=== PATIENT | female | born 1980 | race African-American/Black ===

== ENCOUNTER 2018-03-30 09:42 | Emergency (ER) | payer OTHER ==
[~2018-03-30] VITALS: Ht 157.5 cm; Wt 136.1 kg
[2018-03-30 10:47] VITALS: BP 138/91
[2018-03-30] MEDS ORDERED: NAPR-683 PO (10:50)
--- NOTE | 2018-03-30 10:50 | PHYS DOC ---
Past History Past Medical History: CVA, Hypertension Past Surgical History: Cholecystectomy, Alcohol Use: None Drug Use: None Adult General Chief Complaint Chief Complaint: HAND PROBLEM HPI HPI Patient is a 37 year old left handed female who presents with complaining of a fall and injury to left middle finger. Patient states he did not have loss of consciousness or other injuries and complaining of deformity and severe pain in left fifth finger and rated her pain 10 over 10. Review of Systems Review of Systems Constitutional: Denies fever or chills [] Eyes: Denies change in visual acuity, redness, or eye pain [] HENT: Denies nasal congestion or sore throat [] Respiratory: Denies cough or shortness of breath [] Cardiovascular: No additional information not addressed in HPI [] GI: Denies abdominal pain, nausea, vomiting, bloody stools or diarrhea [] : Denies dysuria or hematuria [] Musculoskeletal: Denies back pain, reports joint pain [] Integument: Denies rash or skin lesions [] Neurologic: Denies headache, focal weakness or sensory changes [] Endocrine: Denies polyuria or polydipsia [] All other systems were reviewed and found to be within normal limits, except as documented in this note. Allergies Allergies Allergies Coded Allergies Type Severity Reaction Last Updated Verified No Known Drug Allergies 03/30/18 No Physical Exam Physical Exam Constitutional: Well developed, well nourished, moderate distress, non-toxic appearance. [] HENT: Normocephalic, atraumatic Eyes: PERRLA, EOMI, conjunctiva normal, no discharge. [] Neck: Normal range of motion, no tenderness, supple, no stridor. [] Cardiovascular:Heart rate regular rhythm, no murmur [] Lungs & Thorax: Bilateral breath sounds clear to auscultation [] Back: No tenderness, no CVA tenderness. [] Extremities: Right hand with fifth finger tenderness and holding on flexion position and unable to bend her finger Neurologic: Alert and oriented X 3, normal motor function, normal sensory function, no focal deficits noted. [] Psychologic: Affect anxious, judgement normal, mood normal. [] Current Patient Data Vital Signs Vital Signs Date Time Temp Pulse Resp B/P (MAP) Pulse Ox O2 Delivery O2 Flow Rate FiO2 03/30/18 09:42 98.4 83 20 100 Room Air EKG EKG [] Radiology/Procedures Radiology/Procedures [address] [id number] IMAGING REPORT Signed PATIENT: FABIANA HYDE I ACCOUNT: [id number] : 1980 LOCATION: ER AGE: 37 SEX: F EXAM STATUS: REG ER ORD. PHYSICIAN: ROXANNE BARRIENTOS MD REASON: 5th finger injury PROCEDURE: FINGER(S) RIGHT EXAM: Right small finger, 3 views. HISTORY: Fall. COMPARISON: None. FINDINGS: 3 views of the right small finger are obtained. There is hyperflexion of the distal interphalangeal joint. There is no fracture, dislocation or subluxation. There is soft tissue swelling and may be a tiny amount of soft tissue gas between the bases of the fourth and fifth phalanges. IMPRESSION: No acute osseous finding. Electronically signed by: Ila Miguel MD (03/30/2018 10:44 AM) [place] [id number] DICTATED AND SIGNED BY: ILA MIGUEL MD DATE: 03/30/18 104 CC: ROXANNE BARRIENTOS MD; GLENNA AUGUST ~ Course & Med Decision Making Course & Med Decision Making Pertinent Imaging studies reviewed. (See chart for details) Evaluation of patient in ER showed 37-year-old female patient with complaining of a fall and injury to right fifth finger. Patient had moderate distress and anxiety and severe pain in her fifth finger. Patient condition improved with finger digital block with 1% lidocaine. X-ray did not show fracture. Patient was able to move her finger after improvement of the pain. Finger splint was applied and patient instructed to apply ice on her finger. Dragon Disclaimer Dragon Disclaimer This electronic medical record was generated, in whole or in part, using a voice recognition dictation system. Departure Departure: Impression: Primary Impression: Injury of right little finger Additional Impressions: Anxiety Morbid obesity with BMI of 50.0-59.9, adult Disposition: HOME, SELF-CARE (@1045) Condition: IMPROVED Referrals: GLENNA AUGUST (PCP) Patient Instructions: Crush Injury, Fingers or Toes Additional Instructions: Apply ice on the affected area Follow-up with your primary care physician in 3-5 days Return to ER if not getting better Scripts Naproxen (NAPROSYN) 500 Mg Tablet 500 MG PO BID for pain, #14 TAB Prov: ROXANNE BARRIENTOS MD 03/30/18 Problem Qualifiers ROXANNE BARRIENTOS MD Mar 30, 2018 10:50
== END 2018-03-30 10:55 | disposition home or self-care (01) ==
LOC: ER 09:42
DX: S69.92XA Unspecified injury of left wrist, hand and finger(s), initial encounter (principal); I10 Essential (primary) hypertension; F41.9 Anxiety disorder, unspecified; E66.01 Morbid (severe) obesity due to excess calories; Z86.73 Personal history of transient ischemic attack (TIA), and cerebral infarction without residual deficits; Z68.43 Body mass index [BMI] 50.0-59.9, adult; W18.30XA Fall on same level, unspecified, initial encounter; Y93.89 Activity, other specified; Y92.89 Other specified places as the place of occurrence of the external cause; Y99.8 Other external cause status
CPT/HCPCS: 29130; 64450; 73140; 99284-25

== ENCOUNTER 2018-07-05 10:25 | Emergency (ER) | payer OTHER ==
[~2018-07-05] VITALS: Ht 157.5 cm; Wt 150.0 kg
[~2018-07-05 10:25] MED LIST: NAPR-683 PO
[2018-07-05] MEDS ORDERED: AMOX1TAB61 PO (11:20)
--- NOTE | 2018-07-05 11:21 | PHYS DOC ---
Past History Past Medical History: CVA, Hypertension Past Surgical History: Cholecystectomy, Alcohol Use: None Drug Use: None Adult General Chief Complaint Chief Complaint: COUGH [facility] HPI 38-year-old female presents with 2 week history of nasal congestion, nasal pressure, and cough. The patient tells me that it started out as a normal cold, but she continues to have congestion and purulent nasal discharge. She now has pressure over her maxillary and frontal sinuses. These are tender to palpation. The patient has not measured a fever at home. She complains of cough with productive greenish sputum. The patient is a cigarette smoker. No one else in her house is ill. Review of Systems Review of Systems Constitutional: Denies fever or chills [] Eyes: Denies change in visual acuity, redness, or eye pain [] HENT: Nasal congestion and sore throat [] Respiratory: Productive cough without shortness of breath [] Cardiovascular: No additional information not addressed in HPI [] GI: Denies abdominal pain, nausea, vomiting, bloody stools or diarrhea [] : Denies dysuria or hematuria [] Musculoskeletal: Denies back pain or joint pain [] Integument: Denies rash or skin lesions [] Neurologic: Denies headache, focal weakness or sensory changes [] Endocrine: Denies polyuria or polydipsia [] All other systems were reviewed and found to be within normal limits, except as documented in this note. Allergies Allergies Allergies Coded Allergies Type Severity Reaction Last Updated Verified No Known Drug Allergies 03/30/18 No Physical Exam Physical Exam Constitutional: Well developed, morbid obesity, well nourished, no acute distress, non-toxic appearance. [] HENT: Normocephalic, atraumatic, bilateral external ears normal, oropharynx moist, no oral exudates, nose thick discharge. Tenderness over frontal and maxillary sinuses[] Eyes: PERRLA, EOMI, conjunctiva normal, no discharge. [] Neck: Normal range of motion, no tenderness, supple, no stridor. [] Cardiovascular:Heart rate regular rhythm, no murmur [] Lungs & Thorax: Bilateral breath sounds decreased but clear to auscultation [] Abdomen: Bowel sounds normal, soft, no tenderness, no masses, no pulsatile masses. [] Skin: Warm, dry, no erythema, no rash. [] Back: No tenderness, no CVA tenderness. [] Extremities: No tenderness, no cyanosis, no clubbing, ROM intact, no edema. [] Neurologic: Alert and oriented X 3, normal motor function, normal sensory function, no focal deficits noted. [] Psychologic: Affect normal, judgement normal, mood normal. [] Current Patient Data Vital Signs Vital Signs Date Time Temp Pulse Resp B/P (MAP) Pulse Ox O2 Delivery O2 Flow Rate FiO2 07/05/18 10:42 98.7 84 18 98 Room Air EKG EKG [] Radiology/Procedures Radiology/Procedures [] Impressions: PA and lateral chest HISTORY: Cough x2 weeks PA and lateral views were taken of the chest. Heart is normal in size without heart failure. There is no effusion. There are no confluent infiltrates. IMPRESSION: 1. No acute infiltrates. Electronically signed by: Dionne Troncoso MD (07/05/2018 11:15 AM) [facility] DICTATED AND SIGNED BY: DIONNE TRONCOSO MD DATE: 07/05/18 1115 CC: ANGEL LACY DO; GLENNA AUGUST Course & Med Decision Making Course & Med Decision Making Pertinent Labs and Imaging studies reviewed. (See chart for details) The patient's chest x-ray is negative for pneumonia. I believe the patient has a sinus infection. I will treat her with Augmentin for 7 days. She is stable for discharge at this time. [] Dragon Disclaimer Dragon Disclaimer This electronic medical record was generated, in whole or in part, using a voice recognition dictation system. Departure Departure: Impression: Primary Impression: Sinusitis, acute maxillary Disposition: 01 HOME, SELF-CARE Condition: STABLE Referrals: GLENNA AUGUST (PCP) Patient Instructions: Sinusitis, Uisp-za-Ebzs Scripts Amoxicillin/Potassium Clav (AUGMENTIN 875-125 TABLET) 1 Each Tablet 1 TAB PO BID for sinusitis, #14 TAB Prov: ANGEL LACY DO 07/05/18 Problem Qualifiers Primary Impression: Sinusitis, acute maxillary Recurrence: non-recurrent Qualified Codes: J01.00 - Acute maxillary sinusitis, unspecified ANGEL LACY DO Jul 05, 2018 11:21
[2018-07-05 11:47] VITALS: BP 145/87
== END 2018-07-05 11:45 | disposition home or self-care (01) ==
LOC: ER 10:25
DX: J01.00 Acute maxillary sinusitis, unspecified (principal); I10 Essential (primary) hypertension; Z86.73 Personal history of transient ischemic attack (TIA), and cerebral infarction without residual deficits
CPT/HCPCS: 71046; 99284

== ENCOUNTER 2018-07-15 12:32 | Emergency (ER) | payer OTHER ==
[~2018-07-15] VITALS: Ht 157.5 cm; Wt 149.6 kg
[~2018-07-15 12:32] MED LIST changes: +AMOX1TAB61 PO
[2018-07-15] MEDS ORDERED: FLUCONAZOLE 100 MG TABLET. PO ONE ×2 (13:00)
[2018-07-15] MEDS ORDERED: CLOT21CR VG (13:06)
[2018-07-15] MEDS ORDERED: FLUC150T PO (13:06)
--- NOTE | 2018-07-15 13:06 | PHYS DOC ---
Past History Past Medical History: CVA, Diabetes, Hypertension Past Surgical History: Cholecystectomy, Alcohol Use: None Drug Use: None Adult General Chief Complaint Chief Complaint: VAGINAL PROBLEM HPI HPI Patient is a 38-year-old female who presents with vaginal discharge and itching. This is similar to previous yeast infection that she last had in her late teens. She recently finished antibiotic prescription. Nothing seems to make this better or worse. She denies any vaginal bleeding. Symptoms are moderate in intensity. She has not tried any [id number] treatment.[] Review of Systems Review of Systems Constitutional: Denies fever or chills [] Eyes: Denies change in visual acuity, redness, or eye pain [] HENT: Denies nasal congestion or sore throat [] Respiratory: Denies cough or shortness of breath [] Cardiovascular: No chest pain or palpitations[] GI: Denies abdominal pain, nausea, vomiting, bloody stools or diarrhea [] : Denies dysuria or hematuria [] Musculoskeletal: Denies back pain or joint pain [] Integument: Denies rash or skin lesions [] Neurologic: Denies headache, focal weakness or sensory changes [] Endocrine: Denies polyuria or polydipsia [] All other systems were reviewed and found to be within normal limits, except as documented in this note. Current Medications Current Medications Current Medications Medications (Trade) Dose Ordered Sig/Tal Start Time Stop Time Status Last Admin Dose Admin Fluconazole (Diflucan) 150 mg 1X ONCE 07/15/18 13:00 07/15/18 13:01 UNV Allergies Allergies Allergies Coded Allergies Type Severity Reaction Last Updated Verified No Known Drug Allergies 03/30/18 No Physical Exam Physical Exam Constitutional: Well developed, well nourished, no acute distress, non-toxic appearance. [] HENT: Normocephalic, atraumatic, bilateral external ears normal, oropharynx moist, no oral exudates, nose normal. [] Eyes: PERRLA, EOMI, conjunctiva normal, no discharge. [] Neck: Normal range of motion, no tenderness, supple, no stridor. [] Cardiovascular:Heart rate regular rhythm, no murmur [] Lungs & Thorax: Bilateral breath sounds clear to auscultation [] Abdomen: Bowel sounds normal, soft, no tenderness, no masses, no pulsatile masses. Pelvic exam deferred by patient [] Skin: Warm, dry, no erythema, no rash. [] Back: No tenderness, no CVA tenderness. [] Extremities: No tenderness, no cyanosis, no clubbing, ROM intact, no edema. [] Neurologic: Alert and oriented X 3, normal motor function, normal sensory function, no focal deficits noted. [] Psychologic: Affect normal, judgement normal, mood normal. [] Current Patient Data Vital Signs Vital Signs Date Time Temp Pulse Resp B/P (MAP) Pulse Ox O2 Delivery O2 Flow Rate FiO2 07/15/18 12:40 98.9 82 18 98 Room Air EKG EKG [] Radiology/Procedures Radiology/Procedures [] Course & Med Decision Making Course & Med Decision Making Pertinent Labs and Imaging studies reviewed. (See chart for details) Medical decision making: This appears on history to be a case of vaginal candidiasis. Will start treatment with Diflucan while in the emergency department. Prescribing medication help with the itching and a second dose of Diflucan if necessary.[] Dragon Disclaimer Dragon Disclaimer This electronic medical record was generated, in whole or in part, using a voice recognition dictation system. Departure Departure: Impression: Primary Impression: Vaginal candidiasis Disposition: HOME, SELF-CARE Condition: IMPROVED Referrals: GLENNA AUGUST (PCP) Follow-up in 2 days Patient Instructions: Candidal Vulvovaginitis, Heyr-ub-Lbzw Additional Instructions: Follow-up with your regular doctor in 2 days. Take the medication as prescribed. Return to the ER if worsening pain, discharge, or any other concerns. Scripts Fluconazole (DIFLUCAN) 150 Mg Tablet 1 TAB PO ONCE for candidiasis, #1 TAB Prov: AMILCAR PASTOR DO 07/15/18 Clotrimazole (GYNE-LOTRIMIN) 21 Gm Cream.appl 1 TAVO VG HS for candidiasis for 7 Days, #1 EACH Prov: AMILCAR PASTOR DO 07/15/18 AMILCAR PASTOR DO Jul 15, 2018 13:06
[2018-07-15 13:11] VITALS: BP 138/89
== END 2018-07-15 13:11 | disposition home or self-care (01) ==
LOC: ER 12:32
DX: B37.3 Candidiasis of vulva and vagina (principal); E11.9 Type 2 diabetes mellitus without complications; I10 Essential (primary) hypertension; Z86.73 Personal history of transient ischemic attack (TIA), and cerebral infarction without residual deficits; Z90.49 Acquired absence of other specified parts of digestive tract; Z98.890 Other specified postprocedural states
CPT/HCPCS: 99283

== ENCOUNTER 2018-08-14 17:19 | Emergency (ER) | payer OTHER ==
[~2018-08-14] VITALS: Ht 157.5 cm; Wt 145.6 kg
[~2018-08-14 17:19] MED LIST changes: +CLOT21CR VG; +FLUC150T PO
--- NOTE | 2018-08-14 17:51 | PHYS DOC ---
Past History Past Medical History: CVA, Diabetes, Gallstones, Hypertension, Kidney Stones (AMILCAR PASTOR DO) Past Surgical History: No Surgical History (AMILCAR PASTOR DO) Additional Smoking Information: 03/27 PPD Alcohol Use: None Drug Use: None (AMILCAR PASTOR DO) Adult General Chief Complaint Chief Complaint: MULTIPLE COMPLAINTS HPI HPI Patient is a 38-year-old female with 2 complaints. 1. Chest heaviness that has been present for the past 2-3 days. Feels like she can't get a good deep breath. Notes bilateral leg swelling. No PE risk factors. No cough. No change with body position. No significant worsening with exertion. No radiation of the discomfort. It is midsternal. Discomfort is moderate in intensity. 2. Headache for the past 2 days. Not worst headache of life, but she is concerned because she's had previous stroke with right sided weakness. She denies any new weakness. Denies any photo or phonophobia. Denies any nausea or vomiting. Denies any fever. She has taken no medicine to help with the headache. Nothing seems to make the discomfort better or worse. No improvement with sleep. Discomfort is moderate in intensity. Diffuse. No radiation.[] (AMILCAR PASTOR DO) Review of Systems Review of Systems Constitutional: Denies fever or chills [] Eyes: Denies change in visual acuity, redness, or eye pain [] HENT: Denies nasal congestion or sore throat [] Respiratory: Denies cough or shortness of breath [] Cardiovascular: No additional information not addressed in HPI [] GI: Denies abdominal pain, nausea, vomiting, bloody stools or diarrhea [] : Denies dysuria or hematuria [] Musculoskeletal: Denies back pain or joint pain [] Integument: Denies rash or skin lesions [] Neurologic: Denies new focal weakness or sensory changes, see HPI [] Endocrine: Denies polyuria or polydipsia [] All other systems were reviewed and found to be within normal limits, except as documented in this note. (AMILCAR PASTOR DO) Allergies Allergies Allergies Coded Allergies Type Severity Reaction Last Updated Verified No Known Drug Allergies 03/30/18 No (AMILCAR PASTOR DO) Physical Exam Physical Exam Constitutional: Well developed, well nourished, no acute distress, non-toxic appearance. [] HENT: Normocephalic, atraumatic, bilateral external ears normal, oropharynx moist, no oral exudates, nose normal. [] Eyes: PERRLA, EOMI, conjunctiva normal, no discharge. [] Neck: Normal range of motion, no tenderness, supple, no stridor. [] Cardiovascular:Heart rate regular rhythm, no murmur [] Lungs & Thorax: Bilateral breath sounds clear to auscultation [] Abdomen: Bowel sounds normal, soft, obese, no tenderness, no masses, no pul satile masses. [] Skin: Warm, dry, no erythema, no rash. [] Back: No tenderness, no CVA tenderness. [] Extremities: No tenderness, no cyanosis, no clubbing, ROM intact, 1-2+ pretibial edema bilateral lower extremities. [] Neurologic: Alert and oriented X 3, right upper extremity weakness, normal rapid repetitive and alternating movements bilaterally, NIH stroke scale of 1 for the upper extremity weakness, normal sensory function, no focal deficits noted. [] Psychologic: Affect normal, judgement normal, mood normal. [] ([facility]) Current Patient Data Vital Signs Vital Signs Date Time Temp Pulse Resp B/P (MAP) Pulse Ox O2 Delivery O2 Flow Rate FiO2 08/14/18 17:37 99.5 101 26 98 Room Air ([facility]) EKG EKG EKG shows a sinus rhythm at 90 bpm, normal axis, normal QTC, no ST elevations. No old EKG is available for comparison. Interpreted by me at 1730.[] ([facility]) Radiology/Procedures Radiology/Procedures [] ([facility]) Impressions: CHEST PA LATERAL History: Chest pressure, headache, lower extremity swelling Comparison: July 05, 2018 Findings: 2 views of the chest are submitted. Cardiac silhouette is stable, upper limits of normal. There is no lobar consolidation or pneumothorax. There is no new lobar consolidation. There are some lung markings of the right lung base although very similar in appearance. Impression: 1. There is no pleural fluid or new lobar consolidation. Electronically signed by: Carmelo Harding MD (08/14/2018 6:00 PM) [facility] DICTATED AND SIGNED BY: CARMELO HARDING MD DATE: 08/14/18 1800 CC: AMILCAR PASTOR DO; PCP,NO ~ CT HEAD WO CONTRAST History: Headache, right upper extremity weakness, previous CVA Comparison: None. Technique: Noncontrast CT imaging was performed of the head. Exposure: One or more of the following individualized dose reduction techniques were utilized for this examination: 1. Automated exposure control 2. Adjustment of the mA and/or kV according to patient size 3. Use of iterative reconstruction technique. Findings: No acute extra-axial or parenchymal hemorrhage is identified. There is no significant intra-axial mass effect, midline shift, or extra-axial fluid collection. The calderon-white differentiation of the major vascular territories is preserved. The ventricles, sulci, and cisterns are within normal limits in size and configuration. The mastoid air cells and the visualized paranasal sinuses are aerated. No acute calvarial abnormality is identified. Impression: 1. No acute intracranial abnormality is identified. Electronically signed by: Carmelo Harding MD (08/14/2018 6:03 PM) [facility] DICTATED AND SIGNED BY: CARMELO HARDING MD DATE: 08/14/18 1803 CC: AMILCAR PASTOR DO; PCP,NO ~ (ANGEL LACY DO) Course & Med Decision Making Course & Med Decision Making Pertinent Labs and Imaging studies reviewed. (See chart for details) D course: Patient arrived, was placed in bed, and tolerated exam well. Patient care was endorsed to the nighttime physician at 1800 with Harry imaging studies pending.[] (AMILCAR PASTOR DO) Course & Med Decision Making The patient's labs are unremarkable. Her chest x-ray is unremarkable. Her head CT is unremarkable. Her troponin is negative. Her EKG is unremarkable. No acute cardiopulmonary process is seen. I will treat her headache with 25 mg of Benadryl, 10 mg of Reglan, and 30 mg Toradol. I spoke with the patient again and she is most concerned about her lower extremity swelling. She is on Losar mcclellan/hydrochlorothiazide for BP. I believe it is reasonable to do a short course of Lasix for 3 days to see if this improves her swelling and symptoms. Patient is feeling better at this time I would like to go home. I have discharged her with a prescription for a total of 5 20 mg Lasix pills. (ANGEL LACY DO) Dragon Disclaimer Dragon Disclaimer This electronic medical record was generated, in whole or in part, using a voice recognition dictation system. (AMILCAR PASTOR DO) Departure Departure: Impression: Primary Impression: Chest pain Additional Impressions: Headache Edema, lower extremity Disposition: HOME, SELF-CARE Condition: STABLE Referrals: PCP,NO (PCP) Patient Instructions: Chest Pain (Nonspecific), Pmch-pm-Asmm, Peripheral Edema Scripts Furosemide (LASIX) 20 Mg Tablet 1 TAB PO DAILY PRN for lower extremity swelling for 5 Days, #5 TAB 1 Refill Prov: ANGEL LACY DO 08/14/18 Problem Qualifiers Primary Impression: Chest pain Chest pain type: other chest pain Qualified Codes: R07.89 - Other chest pain Additional Impressions: Headache Headache type: unspecified Headache chronicity pattern: acute headache Intractability: not intractable Qualified Codes: R51 - Headache AMILCAR PASTOR DO August 14, 2018 17:51 ANGEL LACY DO August 14, 2018 18:43
--- NOTE | 2018-08-14 18:03 | RAD ---
CHEST PA LATERAL History: Chest pressure, headache, lower extremity swelling Comparison: July 05, 2018 Findings: 2 views of the chest are submitted. Cardiac silhouette is stable, upper limits of normal. There is no lobar consolidation or pneumothorax. There is no new lobar consolidation. There are some lung markings of the right lung base although very similar in appearance. Impression: 1. There is no pleural fluid or new lobar consolidation. Electronically signed by: Seth Kearns MD (08/14/2018 6:00 PM) [facility]
--- NOTE | 2018-08-14 18:06 | RAD ---
CT HEAD WO CONTRAST History: Headache, right upper extremity weakness, previous CVA Comparison: None. Technique: Noncontrast CT imaging was performed of the head. Exposure: One or more of the following individualized dose reduction techniques were utilized for this examination: 1. Automated exposure control 2. Adjustment of the mA and/or kV according to patient size 3. Use of iterative reconstruction technique. Findings: No acute extra-axial or parenchymal hemorrhage is identified. There is no significant intra-axial mass effect, midline shift, or extra-axial fluid collection. The calderon-white differentiation of the major vascular territories is preserved. The ventricles, sulci, and cisterns are within normal limits in size and configuration. The mastoid air cells and the visualized paranasal sinuses are aerated. No acute calvarial abnormality is identified. Impression: 1. No acute intracranial abnormality is identified. Electronically signed by: Seth Kearns MD (08/14/2018 6:03 PM) [facility]
[2018-08-14 18:18] LABS: BASO % 0 % (0-3); EOS # 0.1 x10^3/uL (0.0-0.7); EOS % 1 % (0-3); HEMATOCRIT 37.4 % (36.0-47.0); HEMOGLOBIN 11.5 g/dL (12.0-15.5); LYMPH # 2.7 x10^3/uL (1.0-4.8); LYMPH % 24 % (24-48); MEAN CORPUSCULAR HEMOGLOBIN 22 pg (25-35); MEAN CORPUSCULAR HGB CONC 31 g/dL (31-37); MEAN CORPUSCULAR VOLUME 72 fL (79-100); MONO # 0.8 x10^3/uL (0.0-1.1); MONO % 7 % (0-9); NEUT # 7.6 x10^3uL (1.8-7.7); NEUT % 67 % (31-73); PLATELET COUNT 345 x10^3/uL (140-400); RED BLOOD COUNT 5.16 x10^6/uL (3.50-5.40); RED CELL DISTRIBUTION WIDTH 18.9 % (11.5-14.5); WHITE BLOOD COUNT 11.3 x10^3/uL (4.0-11.0)
[2018-08-14 18:21] LABS: ALBUMIN 2.9 g/dL (3.4-5.0); ALBUMIN/GLOBULIN RATIO 0.6 (1.0-1.7); CALCIUM 9.2 mg/dL (8.5-10.1); CREATININE 0.8 mg/dL (0.6-1.0); GFR 96.6; MAGNESIUM 1.8 mg/dL (1.8-2.4); POTASSIUM 3.4 mmol/L (3.5-5.1); TOTAL BILIRUBIN 0.1 mg/dL (0.2-1.0); TOTAL PROTEIN 7.4 g/dL (6.4-8.2)
[2018-08-14 19:03] LABS: HYPOCHROMIA MOD; PLT ESTIMATE ADEQUATE (ADEQUATE)
[2018-08-14 19:04] LABS: ANISOCYTOSIS SLIGHT; POLYCHROMASIA SLIGHT
[2018-08-14] MEDS ORDERED: diphenhydrAMINE 50 MG/ML VIAL IVP ONE (19:15)
[2018-08-14] MEDS ORDERED: KETOROLAC 30 MG/ML VIAL. IV ONE (19:15)
[2018-08-14] MEDS ORDERED: METOCLOPRAMIDE HCL 10 MG/2 ML VIAL. IV ONE (19:15)
[2018-08-14 19:24] LABS: BACTERIA,URINE 0 /HPF (0-FEW); BILIRUBIN,URINE NEG (NEG); CLARITY,URINE HAZY; COLOR,URINE AMBER; GLUCOSE,URINE NEG (NEG); NITRITE,URINE NEG (NEG); RBC,URINE 0 /HPF (0-2); SQUAMOUS EPITHELIAL CELL,UR OCC /LPF; U PREG PATIENT NEGATIVE (NEG); UROBILINOGEN,URINE 0.2 mg/dL (0.2 mg/dL); WBC,URINE 0 /HPF (0-4)
[2018-08-14] MEDS ORDERED: FURO-69 PO (19:28)
[2018-08-14] MEDS ORDERED: FUROSEMIDE 40 MG TABLET PO ONE (19:30)
[2018-08-14 19:34] VITALS: BP 143/88
--- NOTE | 2018-08-17 06:25 | EKG ---
[address] [address] Test Date: 2018-08-14 Test Time: 17:30:36 Pat Name: FABIANA HYDE Department: Room: Gender: F Medical Claims Analyst: : 1980 Requested By: AMILCAR PASTOR Order Number: [id number] Reading MD: Measurements Intervals [place] Rate: 90 P: 34 MT: 150 QRS: 21 QRSD: 88 T: 20 QT: 346 QTc: 427 Interpretive Statements SINUS RHYTHM NORMAL ECG RI6.01 No previous ECG available for comparison
== END 2018-08-14 19:50 | disposition home or self-care (01) ==
LOC: ER 17:19
DX: R07.89 Other chest pain (principal); R60.0 Localized edema; R51 Headache; F17.200 Nicotine dependence, unspecified, uncomplicated; Z87.442 Personal history of urinary calculi; Z86.73 Personal history of transient ischemic attack (TIA), and cerebral infarction without residual deficits
CPT/HCPCS: 36415; 70450; 71046; 80053; 81001; 81025; 83735; 83880; 84484; 85025; 85379; 85610; 85730; 93005; 96374; 96375; 99285; J1200; J1885; J2765

== ENCOUNTER → 2019-03-10 | Outpatient (CLI) | payer MEDICAID ==
[~2019-03-10] MED LIST changes: +FURO-69 PO
--- NOTE | 2019-03-10 16:02 | RAD ---
EXAM: Abdomen and pelvis CT without intravenous contrast. HISTORY: Left flank pain. TECHNIQUE: Computed tomographic images of the abdomen and pelvis were obtained without contrast. Multiplanar reformatting was performed. *One or more of the following individualized dose reduction techniques were utilized for this examination: 1. Automated exposure control. 2. Adjustment of the mA and/or kV according to patient size. 3. Use of iterative reconstruction technique. COMPARISON: None. FINDINGS: Evaluation of the lower thorax demonstrates a calcified granuloma within the posterior right lower lobe. There is a small hiatal hernia. There is hepatomegaly and hepatic steatosis. The gallbladder is surgically absent. The pancreas is unremarkable. The spleen is normal in size for body habitus. The adrenal glands are unremarkable. There is a 6 mL nonobstructing stone within the lower pole of the left kidney. There is no convincing left hydronephrosis. There are multiple calcifications along the course of the distal ureters which are likely due to phleboliths. No right renal stone is seen. There is right renal cortical lobulation due to scarring. There may be a small cyst within the anterior mid zone of the right kidney. The bladder is unremarkable. The uterus is prominent in size. No uterine mass is seen. The adnexal regions are unremarkable. There is no appendicitis. There is colonic diverticulosis without diverticulitis. There are multiple retroperitoneal lymph nodes. There is no pathologically enlarged lymph node. There is no suspicious osseous lesion. IMPRESSION: 1. Left nephrolithiasis. No obstructing renal stone is seen. There are several calcifications along the course of the distal ureters which likely pelvic phleboliths given the absence of ureteral dilatation to suggest ureterolithiasis. 2. Right renal cortical scarring. There may be a small right renal cyst. 3. Hepatomegaly. 4. Colonic diverticulosis. Electronically signed by: Ila Reyes MD (03/10/2019 3:59 PM) [place] [id number]
== END | disposition home or self-care (01) ==
LOC: CT 11:55
PROVIDERS: ATTEND Family Medicine
DX: K57.30 Diverticulosis of large intestine without perforation or abscess without bleeding (principal); K44.9 Diaphragmatic hernia without obstruction or gangrene; J84.10 Pulmonary fibrosis, unspecified; K76.0 Fatty (change of) liver, not elsewhere classified; R16.0 Hepatomegaly, not elsewhere classified; N20.0 Calculus of kidney
CPT/HCPCS: 74176

== ENCOUNTER 2019-08-03 09:10 | Emergency (ER) | payer MEDICAID ==
[~2019-08-03] VITALS: Ht 157.5 cm; Wt 162.8 kg
[~2019-08-03 09:10] MED LIST changes: -HYDR-3165 PO; -SULF1TAB23 PO
--- NOTE | 2019-08-03 09:21 | PHYS DOC ---
Past History Past Medical History: CVA, Diabetes, Gallstones, Hypertension, Kidney Stones Past Surgical History: No Surgical History Alcohol Use: None Drug Use: None General Adult HPI: HPI: Patient is a 39-year-old female presents to the emergency department for evaluation of a painful blister in her perineal area which developed over the past 3 days. She has not had any nausea, vomiting, Dysuria, fevers, or chills. She is a diabetic, and states that her last blood sugar was in the 130s last night. Palpation of the affected area worsens her pain. There are no alleviating factors to her symptoms. Review of Systems: Review of Systems: Constitutional: Denies fever or chills GI: Denies abdominal pain, nausea, vomiting, bloody stools or diarrhea : Denies dysuria, denies Musculoskeletal: Denies back pain or joint pain Integument: Denies rash Neurologic: Denies headache, focal weakness or sensory changes Endocrine: Denies polyuria or polydipsia Lymphatic: Denies swollen glands Heart Score: Risk Factors: Risk Factors: DM, Current or recent (<one month) smoker, HTN, HLP, family history of CAD, obesity. Risk Scores: Score 0 - 3: 2.5% MACE over next 6 weeks - Discharge Home Score 4 - 6: 20.3% MACE over next 6 weeks - Admit for Clinical Observation Score 7 - 10: 72.7% MACE over next 6 weeks - Early Invasive Strategies Allergies: Allergies: Allergies Coded Allergies Type Severity Reaction Last Updated Verified No Known Drug Allergies 03/30/18 No Physical Exam: PE: PHYSICAL EXAM: CONSTITUTIONAL: Well developed, well nourished HEAD: normocephalic, atraumatic EENT: PERRL, EOMI. Conjunctivae normal color, sclerae non-icteric; moist mucous membranes. NECK: Supple, non-tender; no meningismus. LUNGS: Lungs CTA, breathing even and unlabored. Normal air movement. HEART: Regular rate and rhythm, no murmur CHEST: No deformity; non-tender ABDOMEN: The abdomen is soft, and non-tender, no masses or bruits. EXTREM: Normal ROM; no deformity, no calf tenderness. Normal pulses palpable in all extremities. There is no pedal edema. SKIN: No rash; no diaphoresis NEURO: Alert; normal speech and cognition; CN's grossly intact; strength grossly intact without focal deficit. BACK: No CVA TTP. GENITOURINARY: Normal external genitalia. On the superior medial gluteal region, inferior to the vaginal area, and anterior to the anal verge, there is a small nickel sized pustular lesion consistent with a cutaneous abscess. There is a small head to the lesion, with a trace drainage of purulence present. Exam was performed in the presence of the patient's nurse, acting as statistics professor. EKG: EKG: [] Radiology/Procedures: Radiology/Procedures: [] Course & Med Decision Making: Course & Med Decision Making INCISION AND DRAINAGE PROCEDURE NOTE: The abscess located on the right perineal area was prepped with Betadine, anesth etized with 1% lidocaine with epinephrine, and 0.5% Marcaine in a 1: 1 mixture, and incised with #11 blade. A small amount of pus was obtained from the wound, the wound was probed with a blunt forceps and packed with gauze packing. The patient tolerated procedure well. Wound care instructions were discussed with the patient. Hoang Disclaimer: Dragon Disclaimer: This electronic medical record was generated, in whole or in part, using a voice recognition dictation system. Departure Departure: Impression: Primary Impression: Abscess Disposition: 01 HOME, SELF-CARE Condition: STABLE Referrals: AZIZA SMITH MD (PCP) Patient Instructions: Abscess, Incision and Drainage Additional Instructions: Applying warm compresses to the affected area may help improve healing. Change the packing once daily for the next 4 days. Then remove the packing completely. Follow-up with your primary care provider in the next 3 to 4 days for further evaluation. Scripts Hydrocodone Bit/Acetaminophen (NORCO 5-325 TABLET) 1 Each Tablet 1 TAB PO Q6H for pain, #10 TAB Prov: MARIAM RUEDA MD 08/03/19 Sulfamethoxazole/Trimethoprim (BACTRIM 400-80 MG TABLET) 1 Each Tablet 1 TAB PO BID for - for 7 Days, #14 TAB 0 Refills Prov: MARIAM RUEDA MD 08/03/19 MARIAM RUEDA MD August 03, 2019 09:21
[2019-08-03] MEDS ORDERED: LIDOCAINE 1%/EPI 1:100,000 20 ML VIAL. ONE (09:55)
[2019-08-03] MEDS ORDERED: BUPIVACAINE MPF 0.5% 30 ML VIAL. ONE (09:57)
[2019-08-03 10:53] VITALS: BP 150/82
[2019-08-03] MEDS ORDERED: HYDR-3165 PO (10:54)
[2019-08-03] MEDS ORDERED: SULF1TAB23 PO (10:54)
== END 2019-08-03 10:57 | disposition home or self-care (01) ==
LOC: ER 09:10
DX: L02.215 Cutaneous abscess of perineum (principal); E11.9 Type 2 diabetes mellitus without complications; I10 Essential (primary) hypertension; Z87.442 Personal history of urinary calculi; Z86.73 Personal history of transient ischemic attack (TIA), and cerebral infarction without residual deficits
CPT/HCPCS: 56405; 99284

== ENCOUNTER → 2019-08-03 | Outpatient (CLI) | payer MEDICAID ==
[~2019-08-03] MED LIST changes: +HYDR-3165 PO; +SULF1TAB23 PO
--- NOTE | 2019-08-03 11:41 | RAD ---
CT Abdomen and Pelvis without contrast History: Left flank pain, history of stones Technique: Noncontrast CT imaging was performed of the abdomen and pelvis. Multiplanar images are reviewed. Exposure: One or more of the following individualized dose reduction techniques were utilized for this examination: 1. Automated exposure control 2. Adjustment of the mA and/or kV according to patient size 3. Use of iterative reconstruction technique. Comparison: March 10, 2019 Findings: There is again 4 to 5 mm calculus of the mid left kidney, no hydronephrosis. No convincing ureteral calculus is identified on either side. There are several phleboliths in the bilateral pelvis. There is no right renal calculus. There is again degree of lobulation of the right kidney. Urinary bladder is distended. Accurate evaluation of abdominal visceral organs is limited without intravenous contrast. There is no obvious focal abnormality of the spleen, liver, or pancreas. There is again hepatomegaly. There again has been cholecystectomy. There is no adrenal nodularity. Accurate evaluation of bowel is limited without oral contrast. There is no significant free air, free fluid, bowel dilatation. There is scattered diverticulosis greatest of the descending and sigmoid colon not associated with convincing adjacent inflammatory change. Normal caliber appendix is visualized. Uterus is again enlarged. There are again several nonspecific inguinal nodes bilaterally, largest on the right about 1.2 cm short axis dimension somewhat larger as previously 0.8 cm. There are again possible small retroperitoneal nodes overall similar. There are also some nodes along the iliac chains, largest on the right about 0.8 cm short axis dimension fairly similar. Impression: 1. There is again nonobstructive left renal calculus about 4 to 5 mm, no hydronephrosis or ureteral calculus. 2. There is again enlargement of the uterus. 3. There is again colonic diverticulosis without convincing evidence of diverticulitis. 4. There are nonspecific inguinal lymph nodes, including somewhat larger node on the right considered somewhat enlarged. Electronically signed by: Seth Kearns MD (08/03/2019 11:38 AM) [id number]
== END | disposition home or self-care (01) ==
LOC: CT 11:05
PROVIDERS: ATTEND Urology
DX: N20.0 Calculus of kidney (principal); N85.2 Hypertrophy of uterus; K57.30 Diverticulosis of large intestine without perforation or abscess without bleeding; I87.8 Other specified disorders of veins; N32.89 Other specified disorders of bladder; Z90.49 Acquired absence of other specified parts of digestive tract
CPT/HCPCS: 74176

== ENCOUNTER → 2019-09-03 | Outpatient (CLI) | payer MEDICAID ==
[~2019-09-03] MED LIST changes: +HYDR-3165 PO; +SULF1TAB23 PO
== END | disposition home or self-care (01) ==
LOC: LAB 08:23
PROVIDERS: ATTEND Registered Nurse
DX: Z01.818 Encounter for other preprocedural examination (principal); Z11.59 Encounter for screening for other viral diseases; N20.0 Calculus of kidney
CPT/HCPCS: C9803; U0003; 87299

== ENCOUNTER 2019-11-23 09:43 | Emergency (ER) | payer MEDICAID ==
[~2019-11-23] VITALS: Ht 157.5 cm; Wt 162.8 kg
[2019-11-23 09:56] VITALS: BP 172/90
[2019-11-23] MEDS ORDERED: ACETAMINOPHEN 325 MG TABLET PO ONE (10:00)
[2019-11-23] MEDS ORDERED: IBUPROFEN 600 MG TABLET. PO ONE (10:00)
--- NOTE | 2019-11-23 10:03 | PHYS DOC ---
Past History Past Medical History: CVA, Diabetes, Gallstones, Hypertension, Kidney Stones Past Surgical History: No Surgical History Alcohol Use: None Drug Use: None Adult General Chief Complaint Chief Complaint: FOOT INJURY PAIN HPI HPI Patient is a 39-year-old female who presents for right foot injury. Onset was just prior to arrival, patient reports waking up and stepping incorrectly down x1 step. Patient reports eversion type injury to right foot. Nothing known makes better. Ambulation and direct palpation make worse. Patient has history of flat feet bilaterally, has never had surgery. Patient nonambulatory on arrival due to pain. Review of Systems Review of Systems Fourteen body systems of review of systems have been reviewed. See HPI for pertinent positives and negative responses, other salgado all other systems are negative, non-pertinent or non-contributory Allergies Allergies Allergies Coded Allergies Type Severity Reaction Last Updated Verified No Known Drug Allergies 03/30/18 No Physical Exam Physical Exam Constitutional: Well developed, well nourished, no acute distress, non-toxic appearance. HENT: Normocephalic, atraumatic, bilateral external ears normal, oropharynx moist, no oral exudates, nose normal. Eyes: PERRLA, EOMI, conjunctiva normal, no discharge. Neck: Normal range of motion, no tenderness, supple, no stridor. Cardiovascular: Heart rate regular per vitals monitor Lungs & Thorax: Bilateral chest rise, no respiratory distress Abdomen: Soft no tenderness, no masses, no pulsatile masses. Nonsurgical abdomen, no peritoneal signs Skin: Warm, dry, no erythema, no rash. Back: No tenderness, no CVA tenderness. Extremities: No cyanosis, no clubbing, no edema. Bilateral feet and ankles unless otherwise noted: Proximal Tibia and fibular heads nontender Medial malleolus nontender Lateral malleolus nontender Calcaneus nontender Tarsometatarsal region and navicular region of right press tender star signal to palpation Base of 5th nontender Rest of foot and ankle without marked tenderness Varus and Valgus Stress of ankle joint without significant laxity Decreased range of motion of right foot in all planes of motion due to pain, otherwise full strength Skin on plantar section of midfoot without ecchymosis Capillary refill <2seconds and distal Sensation to light touch in tact per routine Compartments surrounding are soft TP & DP pulses 2+ Neurologic: Alert and oriented X 3, normal motor & sensory function, no focal deficits noted. Psychologic: Affect normal, judgement normal, mood normal. EKG EKG [] Radiology/Procedures Radiology/Procedures FOOT RIGHT 3V, TIBIA FIBULA RIGHT, ANKLE RIGHT 3V DATE: 11/23/2019 9:53 AM INDICATION: right foot eversion injury, pain COMPARISON: None. FINDINGS: Bones: There is no evidence of acute fracture or dislocation. Tiny corticated ossific density in the medial clear space appears chronic. Plantar calcaneal enthesophyte. Joints: The ankle mortise is congruent. No widening of the distal tibiofibular syndesmosis. Lisfranc's joint is congruent. Hallux valgus. Miscellaneous: None. IMPRESSION: No evidence of acute fracture. Electronically signed by: Seth Gimenez MD (11/23/2019 10:29 AM) [facility] Course & Med Decision Making Course & Med Decision Making Nonambulatory patient seen on immediate ER arrival Airway patent, breathing unremarkable, vitals grossly unremarkable besides marked hypertension (asymptomatic) on arrival Comprehensive history and physical exam obtained, Bee rule positive for right foot and radiographs ordered 600 mg ibuprofen and 650 mg Tylenol administered for pain Reviewed findings of radiographs that were negative for any obvious bony abnormalities. Discussed most likely diagnosis of ankle sprain Discussed discharge home with supportive care, Tylenol and [id number] NSAIDs for pain control, and rice protocol with close PCP follow-up Patient placed in air splint and given crutches, she was educated on crutch use and demonstrated good knowledge prior to departure Discussed potential role for outpatient physical therapy and/or need for orthopedic evaluation if not fully resolved, she will need to discuss this more with PCP Strict return precautions discussed with good understanding by patient, all questions and concerns addressed prior to ER departure in stable condition Dragon Disclaimer Dragon Disclaimer This electronic medical record was generated, in whole or in part, using a voice recognition dictation system. Departure Departure: Impression: Primary Impression: Right ankle sprain Additional Impression: HTN (hypertension) Disposition: 01 HOME/RESIDENCE PRIOR TO ADM Condition: STABLE Referrals: AZIZA SMITH MD (PCP) Patient Instructions: Ankle Exercises (for Rehabilitation), Ankle Sprain, RICE - Routine Care for Injuries Additional Instructions: As recommended prior to ER departure, please call your primary physician first thing on ER departure to set up hospital follow-up in upcoming 1 to 9 days time Please see attached instructions on how to care for your ankle using rice protocol, daily exercises, and other supportive care measures to ensure continued healing Also, your blood pressure was elevated on arrival to our ER today. Please keep a log of at least 1-3 readings daily, keep this in a journal, and present this to your PCP for review at follow-up visit It was a pleasure to take care of you and I wish you a speedy recovery! Justification of Admission: Justification of Admission: Justification of Admission Dx: N/A Problem Qualifiers JANES VÁSQUEZ DO Nov 23, 2019 10:03
--- NOTE | 2019-11-23 10:33 | RAD ---
FOOT RIGHT 3V, TIBIA FIBULA RIGHT, ANKLE RIGHT 3V DATE: 11/23/2019 9:53 AM INDICATION: right foot eversion injury, pain COMPARISON: None. FINDINGS: Bones: There is no evidence of acute fracture or dislocation. Tiny corticated ossific density in the medial clear space appears chronic. Plantar calcaneal enthesophyte. Joints: The ankle mortise is congruent. No widening of the distal tibiofibular syndesmosis. Lisfranc's joint is congruent. Hallux valgus. Miscellaneous: None. IMPRESSION: No evidence of acute fracture. Electronically signed by: Seth Gimenez MD (11/23/2019 10:29 AM) [place]
== END 2019-11-23 11:03 | disposition home or self-care (01) ==
LOC: ER 09:43
DX: S93.401A Sprain of unspecified ligament of right ankle, initial encounter (principal); I10 Essential (primary) hypertension; E11.9 Type 2 diabetes mellitus without complications; Z87.442 Personal history of urinary calculi; Z86.73 Personal history of transient ischemic attack (TIA), and cerebral infarction without residual deficits; X50.9XXA Other and unspecified overexertion or strenuous movements or postures, initial encounter; Y93.01 Activity, walking, marching and hiking; Y92.89 Other specified places as the place of occurrence of the external cause; Y99.8 Other external cause status
CPT/HCPCS: 29515; 73590; 73610; 73630; 99284

== ENCOUNTER 2020-02-14 07:55 | Emergency (ER) | payer MEDICAID ==
[~2020-02-14] VITALS: Ht 154.9 cm; Wt 156.0 kg
[2020-02-14 08:07] VITALS: BP 159/74
--- NOTE | 2020-02-14 08:10 | PHYS DOC ---
Past History Past Medical History: Anxiety, CHF, Depression, Diabetes, Hypertension, Kidney Stones, Stroke Past Surgical History: Cholecystectomy Additional Past Surgical Histo: c section x2, Kidney stones Alcohol Use: None Drug Use: None General Adult EDM: Chief Complaint: FINGER INJURY HPI: HPI: Patient is a 39-year-old female who presents with a week and a half of right ring finger pain. Patient describes moderate at rest and more severe throbbing right ring finger pain for the last week and a half. Patient denies any specific traumas. Patient has noticed some yellow/green discoloration of the ulnar side of right ring finger but has not had car discharge. Pain is nonradiating Review of Systems: Review of Systems: Constitutional: Denies fever or chills Eyes: Denies change in visual acuity HENT: Denies nasal congestion or sore throat Respiratory: Denies cough or shortness of breath Cardiovascular: Denies chest pain or edema GI: Denies abdominal pain, nausea, vomiting, bloody stools or diarrhea : Denies dysuria Musculoskeletal: Denies back pain or joint pain Integument: Denies rash Neurologic: Denies headache, focal weakness or sensory changes Endocrine: Denies polyuria or polydipsia Lymphatic: Denies swollen glands Psychiatric: Denies depression or anxiety Allergies: Allergies: Allergies Coded Allergies Type Severity Reaction Last Updated Verified No Known Drug Allergies 03/30/18 No Physical Exam: PE: Constitutional: Well developed, well nourished, no acute distress, non-toxic appearance. [] HENT: Normocephalic, atraumatic, bilateral external ears normal, no trismus nose normal. [] Eyes: PERRLA, EOMI, conjunctiva normal, no discharge. [] Neck: Normal range of motion, no tenderness, supple, no stridor. [] Cardiovascular:Heart rate regular rhythm, peripheral pulses are intact cap refill is brisk Lungs & Thorax: Bilateral breath sounds clear, no respiratory distress Abdomen: soft, no tenderness, no masses, no pulsatile masses. [] Skin: Warm, dry, Back: No tenderness, no CVA tenderness. [] Extremities: Right ring finger with tenderness and fluctuance on the ulnar side. Mild surrounding erythema, no evidence of flexor tenosynovitis. Neurologic: Alert and oriented X 3, normal motor function, normal sensory function, no focal deficits noted. [] Psychologic: Affect normal, judgement normal, mood normal. [] EKG: EKG: [] Radiology/Procedures: Radiology/Procedures: [] Heart Score: Risk Factors: Risk Factors: DM, Current or recent (<one month) smoker, HTN, HLP, family history of CAD, obesity. Risk Scores: Score 0 - 3: 2.5% MACE over next 6 weeks - Discharge Home Score 4 - 6: 20.3% MACE over next 6 weeks - Admit for Clinical Observation Score 7 - 10: 72.7% MACE over next 6 weeks - Early Invasive Strategies Course & Med Decision Making: Course & Med Decision Making Pertinent Labs and Imaging studies reviewed. (See chart for details) [] Procedure note: Clinical indication paronychia right ring finger Clinical procedure: Incision and drainage of paronychia on the right ring finger After obtaining verbal consent a digital block was performed on the right ring finger using a dorsal approach with a 25-gauge needle, approximately 3 cc of 1% lidocaine was infused. The skin was prepped with alcohol prior to making incision. Patient tolerated procedure well, anesthesia was decent but a little more lidocaine had to be infused more distally. After Betadine prep of the ulnar side of the right distal ring finger an 11 blade stab incision was made with a moderate amount of purulent material e xpressed. The wound was then copiously irrigated with normal saline. Wound was probed to break up any loculations. Patient tolerated well. Dressing was applied. 3-year-old female presents with a paronychia to the right ring finger. The finger was drained with a moderate amount of. Material expressed. Patient was placed on antibiotics and something for pain. Return precautions given. Dragon Disclaimer: Hoang Disclaimer: This electronic medical record was generated, in whole or in part, using a voice recognition dictation system. Departure Departure: Impression: Primary Impression: Paronychia of right ring finger Disposition: 01 DC HOME SELF CARE/HOMELESS Condition: STABLE Referrals: AZIZA SMITH MD (PCP) 2-3 days Patient Instructions: Paronychia Additional Instructions: EMERGENCY DEPARTMENT GENERAL DISCHARGE INSTRUCTIONS THANK YOU for coming to [facility] Emergency Department (ED) today and trusting us with your care. We trust that you had a positive experience in our Emergency Department. If you wish to speak to the department Management you can contact the emergency department at YOUR FOLLOW UP INSTRUCTIONS ARE FOLLOWS: Do you have a private doctor? If you do not have a private doctor, please ask for a resource list of physicians or clinics that may be able to assist you with follow up care. The Emergency Physician has interpreted your x-rays. The X-ray specialist will also review them. If there is a change in the findings you will be notified in 48 hours when at all possible. A lab test or lab culture may have been done, your results will be reviewed and you will be notified if you need a change in treatment. ADDITIONAL INSTRUCTIONS AND INFORMATION Your care today has been supervised by a physician who is specially trained in emergency care. Many problems require more than one evaluation for a complete diagnosis and treatment. We recommend that you schedule your follow up appointment as recommended to ensure complete treatment of your illness or injury. If you are unable to obtain follow up care and continue to have a problem, or if your condition worsens we recommend that you return to the ED. We are not able to safely determine your condition over the phone nor are we able to give sound medical advice over the phone. For these safety reasons, if you call for medical advice we will ask you to come to the ED for further evaluation If you have any questions regarding these discharge instructions please call the ED at . SAFETY INFORMATION In the interest of safety, wellness, and injury prevention; we encourage you to wear your seatbelt, if you smoke; quit smoking, and we encourage your family to use protective helmet for bicycling and other sporting events that present an increased risk for head injury. IF YOUR SYMPTOMS WORSEN OR NEW SYMPTOMS DEVELOP, OR YOU HAVE CONCERNS ABOUT YOUR CONDITION; OR IF YOUR CONDITION WORSENS WHILE YOU ARE WAITING FOR YOUR FOLLOW UP APPOINTMENT; EITHER CONTACT YOUR PRIMARY CARE DOCTOR, THE PHYSICIAN WHOSE NAME AND NUMBER YOU WERE GIVEN, OR RETURN TO THE ED IMMEDIATELY. Scripts Ibuprofen (Ibu) 600 Mg Tablet 1 TAB PO Q6-8HRS for pain, fever, inflammation for 6 Days, #24 TAB 0 Refills Prov: RAVEN PEREZ MD 02/14/20 Sulfamethoxazole/Trimethoprim (BACTRIM DS TABLET) 1 Each Tablet 1 TAB PO BID for infection for 10 Days, #20 TAB 0 Refills Prov: RAVEN PEREZ MD 02/14/20 RAVEN PEREZ MD Feb 14, 2020 08:10
[2020-02-14] MEDS ORDERED: LIDOCAINE 1% PF 30 ML VIAL. INJ ONE (08:15)
[2020-02-14] MEDS ORDERED: SULF1TAB24 PO (08:55)
[2020-02-14] MEDS ORDERED: IBUP-571 PO (08:55)
== END 2020-02-14 09:04 | disposition home or self-care (01) ==
LOC: ER 07:55
DX: L03.011 Cellulitis of right finger (principal); I11.0 Hypertensive heart disease with heart failure; I50.9 Heart failure, unspecified; E11.9 Type 2 diabetes mellitus without complications; Z87.442 Personal history of urinary calculi; Z86.73 Personal history of transient ischemic attack (TIA), and cerebral infarction without residual deficits
CPT/HCPCS: 10060; 99283; J2001

== ENCOUNTER 2020-04-03 19:51 | Emergency (ER) | payer MEDICAID ==
[~2020-04-03] VITALS: Ht 157.5 cm; Wt 156.8 kg
[~2020-04-03 19:51] MED LIST changes: +IBUP-571 PO; +SULF1TAB24 PO
[2020-04-03 20:05] VITALS: BP 163/91
[2020-04-03] MEDS: IV NORMAL SALINE 1,000ML 1,000 ML IV SCH ×2 (20:30→20:45)
[2020-04-03 20:40] LABS: BASO % 0 % (0-3); EOS # 0.1 x10^3/uL (0.0-0.7); EOS % 1 % (0-3); HEMATOCRIT 38.2 % (36.0-47.0); HEMOGLOBIN 12.1 g/dL (12.0-15.5); LYMPH # 2.2 x10^3/uL (1.0-4.8); LYMPH % 22 % (24-48); MEAN CORPUSCULAR HEMOGLOBIN 23 pg (25-35); MEAN CORPUSCULAR HGB CONC 32 g/dL (31-37); MEAN CORPUSCULAR VOLUME 74 fL (79-100); MONO # 0.8 x10^3/uL (0.0-1.1); MONO % 7 % (0-9); NEUT # 7.1 x10^3uL (1.8-7.7); NEUT % 69 % (31-73); PLATELET COUNT 350 x10^3/uL (140-400); RED BLOOD COUNT 5.19 x10^6/uL (3.50-5.40); RED CELL DISTRIBUTION WIDTH 18.7 % (11.5-14.5); WHITE BLOOD COUNT 10.2 x10^3/uL (4.0-11.0)
[2020-04-03] MEDS ORDERED: ONDANSETRON PF 4 MG/2 ML VIAL. ONE (20:40)
[2020-04-03] MEDS ORDERED: KETOROLAC 15 MG/ML VIAL. ONE (20:41)
[2020-04-03 20:45] LABS: BILIRUBIN,URINE NEG (NEG); CLARITY,URINE CLEAR; COLOR,URINE COLORLESS; GLUCOSE,URINE NEG (NEG)
[2020-04-03] MEDS ORDERED: ONDANSETRON PF 4 MG/2 ML VIAL. IVP ONE ×2 (20:45→22:00)
[2020-04-03] MEDS ORDERED: KETOROLAC 15 MG/ML VIAL. IVP ONE (20:45)
[2020-04-03 20:46] LABS: BACTERIA,URINE 0 /HPF (0-FEW); NITRITE,URINE NEG (NEG); RBC,URINE 0 /HPF (0-2); UROBILINOGEN,URINE 0.2 mg/dL (0.2 mg/dL); WBC,URINE 0 /HPF (0-4)
[2020-04-03 20:48] LABS: AMPHETAMINE/METHAMPHETAMINE NEG (NEG); BARBITURATES NEG (NEG); BENZODIAZEPINES NEG (NEG); CANNABINOIDS NEG (NEG); COCAINE NEG (NEG); METHADONE NEG (NEG); OPIATES NEG (NEG); PHENCYCLIDINE NEG (NEG)
[2020-04-03 20:48] LABS: CREATININE 0.8 mg/dL (0.6-1.0); GFR 96.1; POTASSIUM 3.8 mmol/L (3.5-5.1)
--- NOTE | 2020-04-03 20:49 | PHYS DOC ---
Past History Past Medical History: Anxiety, Hypertension, Stroke Additional Past Medical Histor: PTSD (MAURICE KRISHNA APRN) Past Surgical History: Cholecystectomy, , Other Additional Past Surgical Histo: KIDNEY STONES (MAURICE KRISHNA APRN) Alcohol Use: None Drug Use: None (MAURICE KRISHNA APRN) General Adult EDM: Chief Complaint: ABDOMINAL PAIN HPI: HPI: Patient is a-year-old female presents with left-sided lower abdominal pain that started about 8 PM tonight. Patient states that she was going for bed when the pain started. Patient states that she started vomiting and having diarrhea. Patient denies fever or recent illness. Patient denies taking anything for pain prior to arrival. (MAURICE KRISHNA APRN) Review of Systems: Review of Systems: Constitutional: Denies fever or chills Eyes: Denies change in visual acuity HENT: Denies nasal congestion or sore throat Respiratory: Denies cough or shortness of breath Cardiovascular: Denies chest pain or edema GI: Reports abdominal pain, nausea, vomiting, diarrhea. Denies bloody stools : Denies dysuria, urgency Musculoskeletal: Denies back pain or joint pain Integument: Denies rash Neurologic: Denies headache, focal weakness or sensory changes Endocrine: Denies polyuria or polydipsia Lymphatic: Denies swollen glands Psychiatric: Denies depression or anxiety (MAURICE KRISHNA APRN) Current Medications: Current Meds: Current Medications Medications (Trade) Dose Ordered Sig/Tal Start Time Stop Time Status Last Admin Dose Admin Ketorolac Tromethamine (Toradol 15mg Vial) 15 mg 1X ONCE 04/03/20 20:45 04/03/20 20:46 Ondansetron HCl (Zofran) 4 mg 1X ONCE 04/03/20 20:45 04/03/20 20:46 Sodium Chloride 1,000 ml @ 1,000 mls/hr Q1H 04/03/20 20:30 04/03/20 21:29 (MAURICE KRISHNA APRN) Allergies: Allergies: Allergies Coded Allergies Type Severity Reaction Last Updated Verified amoxicillin Allergy Unknown 02/14/20 Yes (MAURICE KRISHNA APRN) Physical Exam: PE: Constitutional: Well developed, well nourished, no acute distress, non-toxic appearance. [] HENT: Normocephalic, atraumatic, bilateral external ears normal, oropharynx moist, no oral exudates, nose normal. [] Eyes: PERRLA, EOMI, conjunctiva normal, no discharge. [] Neck: Normal range of motion, no tenderness, supple, no stridor. [] Cardiovascular:Heart rate regular rhythm, no murmur [] Lungs & Thorax: Bilateral breath sounds clear to auscultation [] Abdomen: Bowel sounds normal, soft, tenderness with palpation Skin: Warm, dry, no erythema, no rash. [] Back: No tenderness, no CVA tenderness. [] Extremities: No tenderness, no cyanosis, no clubbing, ROM intact, no edema. [] Neurologic: Alert and oriented X 3, normal motor function, normal sensory function, no focal deficits noted. [] Psychologic: Affect normal, judgement normal, mood normal. [] (MAURICE KRISHNA APRN) Current Patient Data: Vital Signs: Vital Signs Date Time Temp Pulse Resp B/P (MAP) Pulse Ox O2 Delivery O2 Flow Rate FiO2 04/03/20 20:05 98.7 93 16 163/91 (115) 95 Room Air (MAURICE KRISHNA APRN) EKG: EKG: Sinus rhythm, heart rate 79 bpm. [] (MAURICE KRISHNA APRN) Radiology/Procedures: Radiology/Procedures: []XR CHEST 1V History: Reason: abdominal pain / Spl. Instructions: / History: Comparison: August 14, 2018 Findings: No consolidation or pleural effusion. Normal heart size. No pneumothorax. Impression: 1. No acute cardiopulmonary process. Electronically signed by: Gomez Varghese DO (04/03/2020 9:16 PM) [facility] ABDOMEN+PELVIS WO History: Reason: abdominal pain / Spl. Instructions: / History: Technique: Noncontrast examination of the abdomen and pelvis. Coronal and sagittal reconstructions were performed. Exposure: One or more of the following individualized dose reduction techniques were utilized for this examination: 1. Automated exposure control 2. Adjustment of the mA and/or kV according to patient size 3. Use of iterative reconstruction technique. Comparison: August 03, 2019 Findings: Lower chest: No consolidation or pleural effusion. Calcified right lower lobe pulmonary nodule, likely prior granulomatous disease. Abdomen and pelvis: Enlarged liver with steatosis. Prior cholecystectomy. The spleen, adrenal glands, and pancreas are unremarkable. Lobulated appearance of the kidneys, unchanged. No hydronephrosis. No renal calculi. Colonic diverticulosis. Normal appendix. No evidence of bowel obstruction. No pathologic lymphadenopathy. No ascites. Enlarged appearance of the uterus, unchanged. Bones: No pathologic osseous lesions. Impression: 1. No acute abdominal or pelvic pathology. 2. Hepatomegaly with steatosis. 3. Enlarged uterus, unchanged. Electronically signed by: Gomez Varghese DO (04/03/2020 9:29 PM) [facility] (MAURICE KRISHNA APRN) Heart Score: Risk Factors: Risk Factors: DM, Current or recent (<one month) smoker, HTN, HLP, family history of CAD, obesity. Risk Scores: Score 0 - 3: 2.5% MACE over next 6 weeks - Discharge Home Score 4 - 6: 20.3% MACE over next 6 weeks - Admit for Clinical Observation Score 7 - 10: 72.7% MACE over next 6 weeks - Early Invasive Strategies (MAURICE KRISHNA APRN) Course & Med Decision Making: Course & Med Decision Making Pertinent Labs and Imaging studies reviewed. (See chart for details) [] 44-year-old female presents with left-sided lower abdominal pain, nausea, vomiting, diarrhea. CT of abdomen and pelvis ordered to rule out kidney stones, diverticulitis.1. No acute abdominal or pelvic pathology.2. Hepatomegaly with steatosis.3. Enlarged uterus, unchanged. Labs and UA all negative for abnormality. Will discharge patient home. Patient is hemodynamically stable and able to ambulate on her own upon discharge. (MAURICE KRISHNA APRN) Dragon Disclaimer: Dragon Disclaimer: This electronic medical record was generated, in whole or in part, using a voice recognition dictation system. (MAURICE KRISHNA APRN) Departure Departure: Impression: Primary Impression: Gastroenteritis Disposition: 01 DC HOME SELF CARE/HOMELESS Condition: STABLE Referrals: AZIZA SMITH MD (PCP) Patient Instructions: Viral Gastroenteritis, [id number] Additional Instructions: You were seen today in the Emergency Room for abdominal pain, nausea, vomiting and diarrhea. Your CT of your abdomen was negative for any acute abnormalities. Your CT results are unchanged from your previous CT in July. Please follow up with your PCP for further concerns and return to the ER with worsening symptoms. EMERGENCY DEPARTMENT GENERAL DISCHARGE INSTRUCTIONS Thank you for coming to [facility] (ED) today and trusting us with you care. We trust that you had a positivie experience in our Emergency Department. If you wish to speak to the department management, you may call the director at [phone]. YOUR FOLLOW UP INSTRUCTIONS ARE FOLLOWS: 1. Do you have a private Doctor? If you do not have a private doctor, please ask for a resource list of physicians or clinics that may be able to assist you with follow up care. 2. The Emergency Physician has interpreted your x-rays. The X-Ray specialist will also review them. If there is a change in the findings, you will be notified in 48 hours when at all possible. 3. A lab test or culture has been done, your results will be reviewed and you will be notified if you need a change in treatment. ADDITIONAL INSTRUCTIONS AND INFORMATION: 1. Your care today has been supervised by a physician who is specially trained in emergency care. Many problems require more than one evaluation for a complete diagnosis and treatment. We recommend that you schedule your follow up appointment as recommended to ensure complete treatment of you illness or injury. If you are unable to obtain follow up care and continue to have a problem, or if your condition worsens, we recommend that you return to the ED. 2. We are not able to safely determine your condition over the phone nor are we able to give sound medical advice over the phone. For these safety reasons, if you call for medical advice we will ask you to come to the ED for further evaluation. 3. If you have any questions regarding these discharge instructions please call the ED at [phone]. SAFETY INFORMATION: In the interest of safety, wellness, and injury prevention; we encourage you to wear your sealbelt, if you smoke; quite smoking, and we encourage family to use a protective helmet for bicycling and other sporting events that present an increased risk for head injury. IF YOUR SYMPTOMS WORSEN OR NEW SYMPTOMS DEVELOP, OR YOU HAVE CONCERNS ABOUT YOUR CONDITION; OR IF YOUR CONDITION WORSENS WHILE YOU ARE WAITING FOR YOUR FOLLOW UP APPOINTMENT; EITHER CONTACT YOUR PRIMARY CARE DOCTOR, THE PHYSICIAN WHOSE NAME AND NUMBER YOU WERE GIVEN, OR RETURN TO THE ED IMMEDIATELY. Scripts Ondansetron Hcl (ZOFRAN) 4 Mg Tablet 4 MG PO TID PRN PRN for NAUSEA, #9 TAB Prov: MAURICE KRISHNA TEXTILE KNITTER 04/03/20 Dragon Disclaimer This chart was dictated in whole or in part using Voice Recognition software in a busy, high-work load, and often noisy Emergency Department environment. It may contain unintended and wholly unrecognized errors or omissions. (BUTCH OCHOA MD) Attending Signature Attending Signature I have participated in the care of this patient and I have reviewed and agree with all pertinent clinical information above including history, exam, and recommendations. (BUTCH OCHOA MD) MAURICE KRISHNA APRN Apr 03, 2020 20:49 BUTCH OCHOA MD Apr 05, 2020 01:19
[2020-04-03 20:53] LABS: U PREG PATIENT NEGATIVE (NEG)
[2020-04-03 20:55] LABS: ALBUMIN 3.2 g/dL (3.4-5.0); ALBUMIN/GLOBULIN RATIO 0.6 (1.0-1.7); TOTAL BILIRUBIN 0.1 mg/dL (0.2-1.0); TOTAL PROTEIN 8.4 g/dL (6.4-8.2)
--- NOTE | 2020-04-03 21:19 | RAD ---
XR CHEST 1V History: Reason: abdominal pain / Spl. Instructions: / History: Comparison: August 14, 2018 Findings: No consolidation or pleural effusion. Normal heart size. No pneumothorax. Impression: 1. No acute cardiopulmonary process. Electronically signed by: Gomez Varghese DO (04/03/2020 9:16 PM) [facility]
--- NOTE | 2020-04-03 21:31 | RAD ---
CT ABDOMEN+PELVIS WO History: Reason: abdominal pain / Spl. Instructions: / History: Technique: Noncontrast examination of the abdomen and pelvis. Coronal and sagittal reconstructions we re performed. Exposure: One or more of the following individualized dose reduction techniques were utilized for thi s examination: 1. Automated exposure control 2. Adjustment of the mA and/or kV according to patient size 3. Use of iterative reconstruction technique. Comparison: August 03, 2019 Findings: Lower chest: No consolidation or pleural effusion. Calcified right lower lobe pulmonary nodule, likel y prior granulomatous disease. Abdomen and pelvis: Enlarged liver with steatosis. Prior cholecystectomy. The spleen, adrenal glands, and pancreas are unremarkable. Lobulated appearance of the kidneys, unchanged. No hydronephrosis. No renal calculi. Colonic diverticulosis. Normal appendix. No evidence of bowel obstruction. No pathologic lymphadenopa thy. No ascites. Enlarged appearance of the uterus, unchanged. Bones: No pathologic osseous lesions. Impression: 1. No acute abdominal or pelvic pathology. 2. Hepatomegaly with steatosis. 3. Enlarged uterus, unchanged. Electronically signed by: Gomez Varghese DO (04/03/2020 9:29 PM) [facility]
[2020-04-03] MEDS ORDERED: ONDA4TAB7 PO (21:50)
--- NOTE | 2020-04-03 22:48 | EKG ---
[address] [address] Test Date: 2020-04-03 Test Time: 20:52:07 Pat Name: FABIANA HYDE Department: Room: Gender: F Nuclear Technician: QUIQUE : 1980 Requested By: MAURICE KRISHNA Order Number: [id number] Reading MD: Measurements Intervals [place] Rate: 79 P: 21 HI: 150 QRS: 24 QRSD: 88 T: 28 QT: 374 QTc: 430 Interpretive Statements SINUS RHYTHM VENTRICULAR PREMATURE COMPLEX(ES) ABNORMAL ECG RI6.02 No previous ECG available for comparison
== END 2020-04-03 22:10 | disposition home or self-care (01) ==
LOC: ER 19:51
DX: K52.9 Noninfective gastroenteritis and colitis, unspecified (principal); R10.32 Left lower quadrant pain; R11.2 Nausea with vomiting, unspecified; F41.9 Anxiety disorder, unspecified; I10 Essential (primary) hypertension; I25.2 Old myocardial infarction; Z87.442 Personal history of urinary calculi; Z90.49 Acquired absence of other specified parts of digestive tract; Z98.890 Other specified postprocedural states; Z88.1 Allergy status to other antibiotic agents
CPT/HCPCS: 36415; 71045; 74176; 80053; 80307; 81001; 81025; 85025; 93005; 96374; 96375; 96376; 99285; J1885; J2405; J7030

== ENCOUNTER → 2020-05-18 | Outpatient (CLI) | payer MEDICAID ==
[~2020-05-18] MED LIST changes: +ONDA4TAB7 PO
--- NOTE | 2020-05-18 16:00 | RAD ---
INDICATION: Reason: MENORRHAGIA, ENLARGED UTERUS ON CT / Spl. Instructions: / History: COMPARISON: CT April 03, 2020 TECHNIQUE: Grayscale and color ultrasound images uterus and adnexa. FINDINGS: Uterus: 121 x 66 x 59 mm. Endometrial stripe is 4 mm. Right Ovary: 32 x 23 x 22 mm. Left Ovary: 32 x 25 x 16 mm. Vascular flow identified to bilateral ovaries. At the posterior aspect of the uterus there is a echogenic masslike structure identified measuring ap proximately 36 x 29 x 27 mm. This alters the outer contour of the uterus. IMPRESSION: * Echogenic masslike structure at the uterus which could be from fibroid. Electronically signed by: Omkar Rivas MD (05/18/2020 3:57 PM) [id number]
== END ==
LOC: US 12:55
PROVIDERS: ATTEND Obstetrics & Gynecology
DX: N85.2 Hypertrophy of uterus (principal); N92.0 Excessive and frequent menstruation with regular cycle; N94.6 Dysmenorrhea, unspecified
CPT/HCPCS: 76856

== ENCOUNTER → 2020-06-20 | Outpatient (CLI) | payer MEDICAID ==
[2020-06-20 09:45] LABS: BASO % 0 % (0-3); EOS # 0.1 x10^3/uL (0.0-0.7); EOS % 1 % (0-3); HEMATOCRIT 39.5 % (36.0-47.0); HEMOGLOBIN 12.3 g/dL (12.0-15.5); LYMPH # 2.2 x10^3/uL (1.0-4.8); LYMPH % 24 % (24-48); MEAN CORPUSCULAR HEMOGLOBIN 24 pg (25-35); MEAN CORPUSCULAR HGB CONC 31 g/dL (31-37); MEAN CORPUSCULAR VOLUME 76 fL (79-100); MONO # 0.6 x10^3/uL (0.0-1.1); MONO % 7 % (0-9); NEUT % 67 % (31-73); PLATELET COUNT 322 x10^3/uL (140-400); RED BLOOD COUNT 5.24 x10^6/uL (3.50-5.40); RED CELL DISTRIBUTION WIDTH 18.6 % (11.5-14.5); WHITE BLOOD COUNT 8.9 x10^3/uL (4.0-11.0)
[2020-06-20 09:50] LABS: ALBUMIN 3.2 g/dL (3.4-5.0); ALBUMIN/GLOBULIN RATIO 0.6 (1.0-1.7); CALCIUM 9.2 mg/dL (8.5-10.1); CREATININE 0.9 mg/dL (0.6-1.0); GFR 83.5; POTASSIUM 3.9 mmol/L (3.5-5.1); TOTAL BILIRUBIN 0.1 mg/dL (0.2-1.0); TOTAL PROTEIN 8.2 g/dL (6.4-8.2)
[2020-06-20 14:41] LABS: THYROID STIM HORMONE (TSH) 2.407 uIU/mL (0.358-3.740)
[2020-06-20 22:09] LABS: DHEA SO4 115.1 ug/dL (57.3-279.2); FSH 5.3 mIU/mL (.); LUTEINIZING HORMONE 4.8 mIU/mL (.)
[2020-06-21 02:10] LABS: HEMOGLOBIN A1C 8.9 % (4.8-5.6)
== END ==
LOC: LAB 08:49
PROVIDERS: ATTEND Obstetrics & Gynecology
DX: N92.0 Excessive and frequent menstruation with regular cycle (principal); L68.0 Hirsutism
CPT/HCPCS: 36415; 80053; 80061; 82627; 83001; 83002; 83036; 83525; 84402; 84403; 84443; 85025

== ENCOUNTER 2020-07-02 11:30 | Emergency (ER) | payer MEDICAID ==
[~2020-07-02] VITALS: Ht 157.5 cm; Wt 156.8 kg
[2020-07-02 11:30] VITALS: BP 171/105
[2020-07-02] MEDS: IBUPROFEN 600 MG TABLET. PO ONE (13:11)
[2020-07-02] MEDS: HYDROcodone/APAP 5/325MG 1 TAB TABLET PO ONE (13:11)
[2020-07-02] MEDS ORDERED: SULF1TAB24 PO (13:52)
[2020-07-02] MEDS ORDERED: HYDR-2155 PO (13:52)
--- NOTE | 2020-07-02 13:55 | PHYS DOC ---
Past History Past Medical History: Anxiety, Depression, Diabetes, Hypertension, Stroke Additional Past Medical Histor: PTSD Past Surgical History: Cholecystectomy, , Other Additional Past Surgical Histo: KIDNEY STONES Alcohol Use: None Drug Use: None Adult General Chief Complaint Chief Complaint: BLISTER/COLD SORE HPI HPI Patient is a 40-year-old female reports feeling a blister that is becoming larger on her rectum for the past 3 to 4 days. Patient states she noticed some blood on the toilet paper when she wipes, states is blood is bright red in color, does not note any blood in her stool, states that her stools have been loose for the past 4 days. Patient states she has not noticed any blood in the stool water after having a bowel movement. Patient denies any urinary tract in fection type signs and symptoms. Patient states she has not had any objects in her rectum, has not practiced anal sex. Patient states she took an old Bactrim DS this morning. Patient states she has not taken anything for the pain, reports her pain a 10/10 on a 1-10 pain scale. Patient reports an allergy to penicillin, states she takes amlodipine, metoprolol, Lexapro, metformin, furosemide, and Motrin at home. Patient denies abdominal pain, nausea, vomiting, diarrhea, fever or chills, chest pains, or shortness of breath. Patient denies any other physical complaints or physical concerns. Review of Systems Review of Systems 14 body systems of review of systems have been reviewed. See HPI for pertinent positives and negative responses, otherwise all other systems are negative, nonpertinent or noncontributory. Current Medications Current Medications Current Medications Medications (Trade) Dose Ordered Sig/Tal Start Time Stop Time Status Last Admin Dose Admin Acetaminophen/ Hydrocodone Bitart (Lortab 5/325) 1 tab 1X ONCE 07/02/20 12:45 07/02/20 12:54 DC 07/02/20 13:11 1 TAB Ibuprofen (Motrin) 600 mg 1X ONCE 07/02/20 12:45 07/02/20 12:54 DC 07/02/20 13:11 600 MG Allergies Allergies Allergies Coded Allergies Type Severity Reaction Last Updated Verified amoxicillin Allergy Unknown 02/14/20 Yes Physical Exam Physical Exam Constitutional: Well developed, well nourished, no acute distress, non-toxic appearance. 40-year-old female tearful at bedside. HENT: Normocephalic, atraumatic, bilateral external ears normal, oropharynx moist, no oral exudates, nose normal. Eyes: PERRLA, EOMI, conjunctiva normal, no discharge. Neck: Normal range of motion, no tenderness, supple, no stridor. Cardiovascular:Heart rate regular rhythm, no murmur, heart sounds S1-S2. Lungs & Thorax: Bilateral breath sounds clear to auscultation all lung kowalski, no adventitious lung sounds appreciated. Abdomen: Bowel sounds normal, soft, no tenderness, no masses, no pulsatile masses. Skin: Warm, dry, no erythema, no rash. Back: No tenderness, no CVA tenderness. Extremities: No tenderness, no cyanosis, no clubbing, ROM intact, no edema. Neurologic: Alert and oriented X 3, normal motor function, normal sensory function, no focal deficits noted. Psychologic: Affect normal, judgement normal, mood normal. : Rectal examination performed with female emergency department nurse escort, noted small 3 mm diameter nonstrangulated hemorrhoid at 9 o'clock position, no erythema appreciated, no drainage from hemorrhoid appreciated, no blood around the rectum appreciated. Pain elicited with palpation to hemorrhoid. Current Patient Data Vital Signs Vital Signs Date Time Temp Pulse Resp B/P (MAP) Pulse Ox O2 Delivery O2 Flow Rate FiO2 07/02/20 13:11 18 97 07/02/20 11:30 98.0 77 171/105 (127) Room Air EKG EKG [] Radiology/Procedures Radiology/Procedures [] Heart Score C/O Chest Pain: No Risk Factors: Risk Factors: DM, Current or recent (<one month) smoker, HTN, HLP, family history of CAD, obesity. Risk Scores: Risk Factors: DM, Current or recent (<one month) smoker, HTN, HLP, family history of CAD, obesity. Course & Med Decision Making Course & Med Decision Making Pertinent Labs and Imaging studies reviewed. (See chart for details) 40-year-old female, vital signs reviewed, presents emergency department for concerns of a blister to her rectum for the past 3 to 4 days. Physical examination consistent with nonstrangulate it hemorrhoid at 9 o'clock position. Discussed case with ED attending Dr. Fairchild who examined the patient with female emergency department registered nurse escort. Discussed findings with patient, recommended to patient warm soaks/sitz bath's 2-3 times a day, application of topical anesthetics such as Tucks pads or Preparation H, oral pain medication at home, Bactrim DS antibiotic medication, follow-up with her primary care tomorrow. We will treat with Bactrim DS antibiotic for likelihood of infectious process. Patient gave verbal understanding of discharge home instructions, hemorrhoid care at home, follow-up with PCP tomorrow, return to ER precautions or concerns, antibiotic and pain medication use, do not drive or operate heavy machinery when taking narcotic pain medications, patient had no further questions or concerns, was discharged home without incident. Dragon Disclaimer Dragon Disclaimer This electronic medical record was generated, in whole or in part, using a voice recognition dictation system. Departure Departure: Impression: Primary Impression: External hemorrhoid Disposition: 01 DC HOME SELF CARE/HOMELESS Condition: GOOD Referrals: AZIZA BORGES MD (PCP) Patient Instructions: Hemorrhoids Additional Instructions: You were seen today in the emergency department for pain to your rectum, examination revealed a small hemorrhoid at the 9 o'clock position, we have discussed warm soaks and baths of at home 2-3 times a day, application of topical anesthetic such as Tucks pads or Preparation H, starting an antibiotic Bactrim that you will take twice a day for the next 10 days, I have given you Guys pain medication, this is a narcotic pain medication, do not drive or operate heavy machinery while taking this pain medication. Please follow-up with Dr. Borges tomorrow for reevaluation of your hemorrhoid. Return to the emergency department for worsening symptoms or other concerns. EMERGENCY DEPARTMENT GENERAL DISCHARGE INSTRUCTIONS Thank you for coming to [facility] (ED) today and trusting us with you care. We trust that you had a positivie experience in our Emergency Department. If you wish to speak to the department management, you may call the director at [phone]. YOUR FOLLOW UP INSTRUCTIONS ARE FOLLOWS: 1. Do you have a private Doctor? If you do not have a private doctor, please ask for a resource list of physicians or clinics that may be able to assist you with follow up care. 2. The Emergency Physician has interpreted your x-rays. The X-Ray specialist will also review them. If there is a change in the findings, you will be notified in 48 hours when at all possible. 3. A lab test or culture has been done, your results will be reviewed and you will be notified if you need a change in treatment. ADDITIONAL INSTRUCTIONS AND INFORMATION: 1. Your care today has been supervised by a physician who is specially trained in emergency care. Many problems require more than one evaluation for a complete diagnosis and treatment. We recommend that you schedule your follow up appointment as recommended to ensure complete treatment of you illness or injury. If you are unable to obtain follow up care and continue to have a problem, or if your condition worsens, we recommend that you return to the ED. 2. We are not able to safely determine your condition over the phone nor are we able to give sound medical advice over the phone. For these safety reasons, if you call for medical advice we will ask you to come to the ED for further evaluation. 3. If you have any questions regarding these discharge instructions please call the ED at [phone]. SAFETY INFORMATION: In the interest of safety, wellness, and injury prevention; we encourage you to wear your sealbelt, if you smoke; quite smoking, and we encourage family to use a protective helmet for bicycling and other sporting events that present an increased risk for head injury. IF YOUR SYMPTOMS WORSEN OR NEW SYMPTOMS DEVELOP, OR YOU HAVE CONCERNS ABOUT YOUR CONDITION; OR IF YOUR CONDITION WORSENS WHILE YOU ARE WAITING FOR YOUR FOLLOW UP APPOINTMENT; EITHER CONTACT YOUR PRIMARY CARE DOCTOR, THE PHYSICIAN WHOSE NAME AND NUMBER YOU WERE GIVEN, OR RETURN TO THE ED IMMEDIATELY. Scripts Sulfamethoxazole/Trimethoprim (BACTRIM DS TABLET) 1 Each Tablet 1 TAB PO BID for RECTAL INFECTION for 10 Days, #20 TAB 0 Refills Prov: BARBIE VERONICA APRN 07/02/20 Hydrocodone Bit/Acetaminophen (HYDROCODONE-APAP 5-325 ) 1 Each Tablet 1 TAB PO PRN Q6HRS PRN for PAIN, #15 TAB 0 Refills Prov: BARBIE VERONICA APRN 07/02/20 BARBIE VERONICA APRN Jul 02, 2020 13:55
== END 2020-07-02 14:07 | disposition home or self-care (01) ==
LOC: ER 11:30
DX: K64.4 Residual hemorrhoidal skin tags (principal); E11.9 Type 2 diabetes mellitus without complications; I10 Essential (primary) hypertension; Z88.1 Allergy status to other antibiotic agents; Z90.49 Acquired absence of other specified parts of digestive tract; Z87.442 Personal history of urinary calculi
CPT/HCPCS: 99283-25

== ENCOUNTER → 2020-12-25 | Outpatient (CLI) | payer MEDICAID ==
[~2020-12-25] MED LIST changes: +HYDR-2155 PO
--- NOTE | 2020-12-25 11:25 | RAD ---
EXAM: Left foot, 3 views. HISTORY: Pain and swelling. COMPARISON: None. FINDINGS: 3 views of the left foot are obtained. There is a mild hallux valgus deformity. There is no fracture, dislocation or subluxation. There is a tiny plantar spur. IMPRESSION: 1. Mild hallux valgus. 2. Small posterior spur. Electronically signed by: Ila Reyes MD (12/25/2020 11:23 AM) [id number]
== END ==
LOC: RAD 11:07
PROVIDERS: ATTEND Podiatrist
DX: M20.12 Hallux valgus (acquired), left foot (principal); M77.8 Other enthesopathies, not elsewhere classified
CPT/HCPCS: 73630

== ENCOUNTER 2021-03-07 12:43 | Emergency (ER) | payer MEDICAID ==
[~2021-03-07] VITALS: Ht 157.5 cm; Wt 156.8 kg
[2021-03-07 12:43] VITALS: BP 151/87
[2021-03-07 13:55] LABS: BACTERIA,URINE 0 /HPF (0-FEW); BILIRUBIN,URINE NEG (NEG); CLARITY,URINE CLEAR; COLOR,URINE YELLOW; GLUCOSE,URINE >=1000 mg/dL (NEG); NITRITE,URINE NEG (NEG); RBC,URINE 0 /HPF (0-2); SQUAMOUS EPITHELIAL CELL,UR FEW /LPF; UROBILINOGEN,URINE 0.2 mg/dL (0.2 mg/dL); WBC,URINE 0 /HPF (0-4)
[2021-03-07 13:56] LABS: U PREG PATIENT NEGATIVE (NEG)
--- NOTE | 2021-03-07 14:02 | PHYS DOC ---
Past History Past Medical History: Anxiety, Depression, Diabetes, Hypertension, Stroke Additional Past Medical Histor: PTSD Past Surgical History: Cholecystectomy, , Other Additional Past Surgical Histo: KIDNEY STONES Alcohol Use: None Drug Use: None General Adult EDM: Chief Complaint: PAIN ON URINATION HPI: HPI: Patient is a 40-year-old female presents with vaginal itching. Patient states that she took Monistat with no relief. Patient is now reporting burning due to constant irritation from itching. Denies pain with urination. Denies vaginal odor. Denies concerns for STDs. Review of Systems: Review of Systems: ROS At least 10 ROS systems have been reviewed and are negative except as documented in the HPI. General: Negative except as outlined in HPI above. Skin: Negative except as outlined in HPI above. HEENT: Negative except as outlined in HPI above. Neck: Negative except as outlined in HPI above. Respiratory: Negative except as outlined in HPI above.. Cardiovascular: Negative except as outlined in HPI above. Abdomen: Negative except as outlined in HPI above. : Negative except as outlined in HPI above. Back/MSK: Negative except as outlined in HPI above. Neuro: Negative except as outlined in HPI above. Psych: Negative except as outlined in HPI above. Allergies: Allergies: Allergies Coded Allergies Type Severity Reaction Last Updated Verified amoxicillin Allergy Unknown 02/14/20 Yes Physical Exam: PE: Constitutional: Well developed, well nourished, no acute distress, non-toxic appearance. [] HENT: Normocephalic, atraumatic, bilateral external ears normal, oropharynx moist, no oral exudates, nose normal. [] Eyes: PERRLA, EOMI, conjunctiva normal, no discharge. [] Neck: Normal range of motion, no tenderness, supple, no stridor. [] Cardiovascular:Heart rate regular rhythm, no murmur [] Lungs & Thorax: Bilateral breath sounds clear to auscultation [] Abdomen/vaginal: Bowel sounds normal, soft, no tenderness, no masses, no pulsatile masses. Vaginalvaginal itching and irritation. Denies vaginal odor. Skin: Warm, dry, no erythema, no rash. [] Back: No tenderness, no CVA tenderness. [] Extremities: No tenderness, no cyanosis, no clubbing, ROM intact, no edema. [] Neurologic: Alert and oriented X 3, normal motor function, normal sensory function, no focal deficits noted. [] Psychologic: Affect normal, judgement normal, mood normal. [] Current Patient Data: Labs: Laboratory Tests Test 03/07/21 13:20 Urine Collection Type Unknown Urine Color Yellow Urine Clarity Clear Urine pH 7.5 Urine Specific Wendel 1.020 Urine Protein Neg (NEG-TRACE) Urine Glucose (UA) >=1000 mg/dL (NEG) Urine Ketones (Stick) Neg mg/dL (NEG) Urine Blood Neg (NEG) Urine Nitrite Neg (NEG) Urine Bilirubin Neg (NEG) Urine Urobilinogen Dipstick 0.2 mg/dL (0.2 mg/dL) Urine Leukocyte Esterase Neg (NEG) Urine RBC 0 /HPF (0-2) Urine WBC 0 /HPF (0-4) Urine Squamous Epithelial Cells Few /LPF Urine Bacteria 0 /HPF (0-FEW) Urine Test Negative (NEG) EKG: EKG: [] Radiology/Procedures: Radiology/Procedures: [] Heart Score: C/O Chest Pain: No Risk Factors: Risk Factors: DM, Current or recent (<one month) smoker, HTN, HLP, family history of CAD, obesity. Risk Scores: Score 0 - 3: 2.5% MACE over next 6 weeks - Discharge Home Score 4 - 6: 20.3% MACE over next 6 weeks - Admit for Clinical Observation Score 7 - 10: 72.7% MACE over next 6 weeks - Early Invasive Strategies Course & Med Decision Making: Course & Med Decision Making Pertinent Labs and Imaging studies reviewed. (See chart for details) [] 40-year-old female presents with vaginal itching. Vaginal swab sent to check for yeast and bacteria. UA and sent to rule out bacteria. Patient denies dysuria. Dragon Disclaimer: Dimdim Disclaimer: This electronic medical record was generated, in whole or in part, using a voice recognition dictation system. Departure Departure: Referrals: AZIZA SMITH MD (PCP) MAURICE KRISHNA APRN Mar 07, 2021 14:02
== END 2021-03-07 15:52 | disposition left against medical advice (07) ==
LOC: ER 12:43
DX: N89.8 Other specified noninflammatory disorders of vagina (principal); F41.9 Anxiety disorder, unspecified; F32.9 Major depressive disorder, single episode, unspecified; E11.9 Type 2 diabetes mellitus without complications; I10 Essential (primary) hypertension; Z86.73 Personal history of transient ischemic attack (TIA), and cerebral infarction without residual deficits; Z90.49 Acquired absence of other specified parts of digestive tract; Z98.890 Other specified postprocedural states; Z87.442 Personal history of urinary calculi; Z88.1 Allergy status to other antibiotic agents
CPT/HCPCS: 81001; 81025; 99283; Q0111

== ENCOUNTER 2021-05-25 11:30 | Emergency (ER) | payer MEDICAID ==
[~2021-05-25] VITALS: Ht 157.5 cm; Wt 150.0 kg
[2021-05-25 12:38] LABS: U PREG PATIENT NEGATIVE (NEG)
--- NOTE | 2021-05-25 12:43 | PHYS DOC ---
Past History Past Medical History: Anxiety, Depression, Diabetes, Hypertension, Stroke Additional Past Medical Histor: PTSD, enlarged liver, enlarged uterus, fibroids (MAURICE KRISHNA APRN) Past Surgical History: Cholecystectomy, , Other Additional Past Surgical Histo: KIDNEY STONES (MAURICE KRISHNA APRN) Alcohol Use: None Drug Use: None (MUARICE KRISHNA APRN) General Adult EDM: Chief Complaint: VAGINAL PROBLEM HPI: HPI: Patient is a 40-year-old female who presents with vaginal itching, burning with urination and frequency. Patient denies abnormal discharge or odor. Patient reports that symptoms started yesterday. Patient is complaining of vaginal discomfort due to scratching. Denies using any medications at home to help with symptoms. Denies concern for STD. Patient states "I have not had intercourse in 3 years". History of anxiety, depression, hypertension. (MAURICE KRISHNA APRN) Review of Systems: Review of Systems: ROS At least 10 ROS systems have been reviewed and are negative except as documented in the HPI. General: Negative except as outlined in HPI above. Skin: Negative except as outlined in HPI above. HEENT: Negative except as outlined in HPI above. Neck: Negative except as outlined in HPI above. Respiratory: Negative except as outlined in HPI above.. Cardiovascular: Negative except as outlined in HPI above. Abdomen: Negative except as outlined in HPI above. : Negative except as outlined in HPI above. Back/MSK: Negative except as outlined in HPI above. Neuro: Negative except as outlined in HPI above. Psych: Negative except as outlined in HPI above. (MAURICE KRISHNA APRN) Allergies: Allergies: Allergies Coded Allergies Type Severity Reaction Last Updated Verified amoxicillin Allergy Unknown 02/14/20 Yes (MAURICE KRISHNA APRN) Physical Exam: PE: Constitutional: Well developed, well nourished, no acute distress, non-toxic appearance. [] HENT: Normocephalic, atraumatic, bilateral external ears normal, oropharynx moist, no oral exudates, nose normal. [] Eyes: PERRLA, EOMI, conjunctiva normal, no discharge. [] Neck: Normal range of motion, no tenderness, supple, no stridor. [] Cardiovascular:Heart rate regular rhythm, no murmur [] Lungs & Thorax: Bilateral breath sounds clear to auscultation [] Abdomen/vaginal: Bowel sounds normal, soft, no tenderness. Vaginal pruritus. No odor. Skin: Warm, dry, no erythema, no rash. [] Back: No tenderness, no CVA tenderness. [] Extremities: No tenderness, no cyanosis, no clubbing, ROM intact, no edema. [] Neurologic: Alert and oriented X 3, normal motor function, normal sensory function, no focal deficits noted. [] Psychologic: Affect normal, judgement normal, mood normal. [] (MAURICE KRISHNA APRN) Current Patient Data: Vital Signs: Vital Signs Date Time Temp Pulse Resp B/P (MAP) Pulse Ox O2 Delivery O2 Flow Rate FiO2 05/25/21 11:50 98.2 98 20 166/105 (125) 97 Room Air (MAURICE KRISHNA APRN) EKG: EKG: [] (MAURICE KRISHNA APRN) Radiology/Procedures: Radiology/Procedures: [] (MAURICE KRISHNA APRN) Heart Score: C/O Chest Pain: No Risk Factors: Risk Factors: DM, Current or recent (<one month) smoker, HTN, HLP, family history of CAD, obesity. Risk Scores: Score 0 - 3: 2.5% MACE over next 6 weeks - Discharge Home Score 4 - 6: 20.3% MACE over next 6 weeks - Admit for Clinical Observation Score 7 - 10: 72.7% MACE over next 6 weeks - Early Invasive Strategies (MAURICE KRISHNA APRN) Course & Med Decision Making: Course & Med Decision Making Pertinent Labs and Imaging studies reviewed. (See chart for details) [] 40-year-old male presents with vaginal pruritus and dysuria. Work-up in ER consist of wet prep, urinalysis, urine . Urine positive for leuks, WBCs. Wet prep shows bacterial vaginosis and yeast. Sent home with antibiotics for urinary tract infection, bacterial vaginosis. Patient given Pyridium while in the ER to treat discomfort and Diflucan for yeast infection. Advised patient to use Aquaphor to raw areas to help with pain. Educated patient on side effects of Flagyl and alcohol. Patient states that she understands discharge instructions. (MAURICE KRISHNA APRN) Dragon Disclaimer: Dragon Disclaimer: This electronic medical record was generated, in whole or in part, using a voice recognition dictation system. (MAURICE KRISHNA APRN) Attending Co-Sign The patient was seen and interviewed as well as examined at the bedside. The chart was reviewed. The case was discussed. Agree with the plan of care. (ANGEL LACY DO) Departure Departure: Impression: Primary Impression: UTI (urinary tract infection) Qualified Codes: N30.00 - Acute cystitis without hematuria Additional Impressions: Bacterial vaginosis Yeast infection Disposition: HOME / SELF CARE / HOMELESS Condition: STABLE Referrals: AZIZA SMITH MD (PCP) Patient Instructions: Urinary Tract Infection, [id number] Additional Instructions: You were seen in the emergency room for vaginal itching and burning with urination. Your urine was positive for infection. I am send you home with a prescription for Macrobid. Make sure that you take the prescription in full and as directed. Increase fluids. Scripts Phenazopyridine Hcl (PYRIDIUM) 200 Mg Tablet 1 TAB PO TID for urinary discomfort for 3 Days, #9 TAB 0 Refills Prov: MAURICE KRISHNA APRN 05/25/21 Metronidazole (METRONIDAZOLE) 500 Mg Tablet 1 TAB PO BID for bv for 7 Days, #14 TAB 0 Refills Prov: MAURICE KRISHNA APRN 05/25/21 Nitrofurantoin Monohyd/M-Cryst (MACROBID 100 MG CAPSULE) 100 Mg Capsule 1 CAP PO BID for uti for 7 Days, #14 CAP 0 Refills Prov: MAURICE KRISHNA APRN 05/25/21 MAURICE KRISHNA APRN May 25, 2021 12:43 ANGEL LACY DO May 26, 2021 08:56
[2021-05-25 12:44] LABS: BACTERIA,URINE FEW /HPF (0-FEW); CLARITY,URINE CLEAR; COLOR,URINE YELLOW; GLUCOSE,URINE >=1000 mg/dL (NEG); NITRITE,URINE NEG (NEG); RBC,URINE 0 /HPF (0-2); SQUAMOUS EPITHELIAL CELL,UR MANY /LPF; UROBILINOGEN,URINE 0.2 mg/dL (0.2 mg/dL)
[2021-05-25] MEDS ORDERED: PHEN-318 PO (13:17)
[2021-05-25] MEDS ORDERED: METR-34 PO (13:17)
[2021-05-25] MEDS ORDERED: NITR100C62 PO (13:17)
[2021-05-25 13:25] VITALS: BP 152/92
[2021-05-25] MEDS ORDERED: FLUCONAZOLE 100 MG TABLET. PO ONE (13:30)
[2021-05-25] MEDS ORDERED: PHENAZOPYRIDINE 200 MG TABLET. PO ONE (13:30)
== END 2021-05-25 13:36 | disposition home or self-care (01) ==
LOC: ER 11:30
DX: N30.00 Acute cystitis without hematuria (principal); N76.0 Acute vaginitis; B37.89 Other sites of candidiasis; B96.89 Other specified bacterial agents as the cause of diseases classified elsewhere; E11.9 Type 2 diabetes mellitus without complications; I10 Essential (primary) hypertension; Z86.73 Personal history of transient ischemic attack (TIA), and cerebral infarction without residual deficits; Z88.1 Allergy status to other antibiotic agents
CPT/HCPCS: 81001; 81025; 87086; 99283; Q0111

== ENCOUNTER 2021-07-25 08:00 | Emergency (ER) | payer MEDICAID ==
[~2021-07-25] VITALS: Ht 157.5 cm; Wt 150.0 kg
[~2021-07-25 08:00] MED LIST changes: +METR-34 PO; +NITR100C62 PO; +PHEN-318 PO
[2021-07-25] MEDS ORDERED: MORPHINE SULFATE 4 MG/ML DISP.SYRIN. IM ONE (08:30)
--- NOTE | 2021-07-25 08:39 | PHYS DOC ---
Past History Past Medical History: Anxiety, Depression, Diabetes, Hypertension, Stroke Additional Past Medical Histor: PTSD, enlarged liver, enlarged uterus, fibroids Past Surgical History: Cholecystectomy, , Other Additional Past Surgical Histo: KIDNEY STONES Alcohol Use: None Drug Use: None General Adult EDM: Chief Complaint: MECHANICAL FALL HPI: HPI: Patient is a 41-year-old female coming in after a fall from standing. Patient states she slipped on a step and twisted her right foot. Landed on her right side also hitting right head and neck. Patient denies any loss of consciousness was not able to ambulate since secondary to pain. Denies any paresthesias or blood thinner use. Patient has a history of prior right foot injury. Review of Systems: Review of Systems: All other systems within normal limits except for as noted in the HPI Current Medications: Current Meds: Current Medications Medications (Trade) Dose Ordered Sig/Tal Start Time Stop Time Status Last Admin Dose Admin Morphine Sulfate (Morphine 4mg Syringe) 6 mg 1X ONCE 07/25/21 08:30 07/25/21 08:31 DC Allergies: Allergies: Allergies Coded Allergies Type Severity Reaction Last Updated Verified amoxicillin Allergy Unknown 07/25/21 Yes Physical Exam: PE: Constitutional: Well developed, well nourished, no acute distress, non-toxic appearance. [] HENT: Normocephalic, atraumatic tenderness to palpation on right scalp, bilateral external ears normal, nose normal. [] Eyes: PERRLA, conjunctiva normal, no discharge. [] Neck: No rigidity, supple, no stridor. No C-spine tenderness step-off or deformity [] Cardiovascular: Regular rate and rhythm, brisk cap refill [] Lungs & Thorax: Non labored symmetric respirations, no tachypnea or respiratory distress [] Abdomen: Soft, nondistended. Skin: Warm, dry, no erythema, no rash. [] Back: Unremarkable Extremities: No deformities, range of motion grossly intact, no lower extremity edema. Right shoulder and humerus tenderness, tenderness of medial right foot with swelling. [] Neurologic: Alert and oriented X 3, no focal deficits noted. [] Psychologic: Affect normal, judgement normal, mood normal. [] Current Patient Data: Vital Signs: Vital Signs Date Time Temp Pulse Resp B/P (MAP) Pulse Ox O2 Delivery O2 Flow Rate FiO2 07/25/21 08:13 98.3 84 20 158/101 (120) 98 Room Air EKG: EKG: [] Radiology/Procedures: Radiology/Procedures: [address] [address] IMAGING REPORT Signed PATIENT: FABIANA HYDE IACCOUNT: [id number] : 1980 LOCATION: ER AGE: 41 SEX: F EXAM STATUS: REG ER ORD. PHYSICIAN: RAJ DASILVA MD REASON: fall PROCEDURE: CT HEAD AND CERVICAL SPINE WO CT HEAD WITHOUT CONTRAST 07/25/2021 8:46 AM Indication: Fall, head trauma: Comparison: CT head August 14, 2018. Procedure: Multidetector CT imaging of the head was performed without the administration of contrast. Findings: There is no evidence of acute intracranial hemorrhage. There is no evidence of acute territorial infarction. Please note that CT is limited for evaluation of acute ischemia. No mass effect or midline shift is identified . The ventricles and basilar cisterns have an appropriate appearance. No abnormal extra-axial fluid collections are seen. No acute osseous changes are identified. Impression: No evidence of acute intracranial abnormality CT cervical spine without contrast. 07/25/2021 8:46 AM Indication:Fall, head trauma Comparison Study: None Technique: Multidetector CT imaging of the cervical spine was obtained without administration of contrast. Findings: Exam somewhat limited by body habitus and poor penetration. There is no evidence of acute fracture or alignment abnormality of the cervical spine. Vertebral body heights and disc spaces are maintained. The atlantoaxial articulation is within normal limits. There is no prevertebral soft tissue swelling. Soft tissues are otherwise unremarkable. No bony compromise of the spinal canal is seen. Impression: No evidence of acute fracture or alignment abnormality of the cervical spine CT DOSING PQRS STATEMENT: One or more of the following individualized dose reduction techniques were utilized for this examination: 1. Automated exposure control 2. Adjustment of the mA and/or kV according to patient size 3. Use of iterative reconstruction technique Electronically signed by: Mir Howell MD (07/25/2021 9:04 AM) [id number] DICTATED AND SIGNED BY: MIR HOWELL MD DATE: 07/25/21 0900 CC: RAJ DASILVA MD; AZIZA SMITH MD ~ [][address] [address] IMAGING REPORT Signed PATIENT: FABIANA HYDE IACCOUNT: [id number] : 1980 LOCATION: ER AGE: 41 SEX: F EXAM STATUS: REG ER ORD. PHYSICIAN: RAJ DASILVA MD REASON: fall PROCEDURE: HUMERUS RIGHT XR SHOULDER_RIGHT 2+ VIEWS, XR HUMERUS_RT 2 VIEWS Clinical Indication: Reason: fall, pain Comparison: None. Findings: Shoulder: There is no acute fracture or dislocation of the shoulder. The acromioclavicular and glenohumeral joints are intact. The visualized lung is clear. There is no evidence of a displaced rib fracture. Humerus: No acute fracture of the humerus. No obvious deformity of the elbow. Soft tissues unremarkable. IMPRESSION: No acute fracture or dislocation. Electronically signed by: oJnas Becerra MD (07/25/2021 9:52 AM) [id number] DICTATED AND SIGNED BY: JONAS BECERRA MD DATE: 07/25/21948 CC: RAJ DASILVA MD; AZIZA SMITH MD ~ [address] [address] IMAGING REPORT Signed PATIENT: FABIANA HYDE IACCOUNT: [id number] : 1980 LOCATION: ER AGE: 41 SEX: F EXAM STATUS: REG ER ORD. PHYSICIAN: RAJ DASILVA MD REASON: fall PROCEDURE: FOOT RIGHT 3V XR FOOT_RIGHT 3 VIEWS Clinical Indication: Reason: fall /pain. Comparison: None. Findings: No acute fracture is identified. There is mild metatarsus primus varus and hallux valgus. There is a tripartite medial sesamoid. There is an accessory navicular. There is minimal joint space narrowing of the first MTP. Joint spaces are otherwise maintained. There is tiny inferior calcaneal bone spur. There is mild dorsal soft tissue swelling. IMPRESSION: No acute fracture. Electronically signed by: Jonas Becerra MD (07/25/2021 9:49 AM) [id number] DICTATED AND SIGNED BY: JONAS BECERRA MD DATE: 07/25/21926 CC: RAJ DASILVA MD; AZIZA SMITH MD ~ Heart Score: C/O Chest Pain: No Risk Factors: Risk Factors: DM, Current or recent (<one month) smoker, HTN, HLP, family history of CAD, obesity. Risk Scores: Score 0 - 3: 2.5% MACE over next 6 weeks - Discharge Home Score 4 - 6: 20.3% MACE over next 6 weeks - Admit for Clinical Observation Score 7 - 10: 72.7% MACE over next 6 weeks - Early Invasive Strategies Course & Med Decision Making: Course & Med Decision Making Pertinent Labs and Imaging studies reviewed. (See chart for details) [] Dragon Disclaimer: Dragon Disclaimer: This electronic medical record was generated, in whole or in part, using a voice recognition dictation system. Departure Departure: Impression: Primary Impression: Fall Disposition: 01 HOME / SELF CARE / HOMELESS Condition: STABLE Referrals: AZIZA SMITH MD (PCP) Patient Instructions: RICE - Routine Care for Injuries Scripts Oxycodone HCl/Acetaminophen (Percocet 5-325 mg Tablet) 1 Each Tablet 1 TAB PO PRN TID PRN for PAIN MDD 3 Tablet(s) for 5 Days, #15 TAB 0 Refills Prov: RAJ DASILVA MD 07/25/21 Meloxicam (MELOXICAM) 15 Mg Tablet 1 TAB PO DAILY PRN for PAIN for 20 Days, #20 TAB 0 Refills Prov: RAJ DASILVA MD 07/25/21 RAJ DASILVA MD July 25, 2021 08:39
--- NOTE | 2021-07-25 09:06 | RAD ---
CT HEAD WITHOUT CONTRAST 07/25/2021 8:46 AM Indication: Fall, head trauma: Comparison: CT head August 14, 2018. Procedure: Multidetector CT imaging of the head was performed without the administration of contrast. Findings: There is no evidence of acute intracranial hemorrhage. There is no evidence of acute territ orial infarction. Please note that CT is limited for evaluation of acute ischemia. No mass effect or midline shift is identified . The ventricles and basilar cisterns have an appropriate appearance. No abnormal extra-axial fluid collections are seen. No acute osseous changes are identified. Impression: No evidence of acute intracranial abnormality CT cervical spine without contrast. 07/25/2021 8:46 AM Indication:Fall, head trauma Comparison Study: None Technique: Multidetector CT imaging of the cervical spine was obtained without administration of cont rast. Findings: Exam somewhat limited by body habitus and poor penetration. There is no evidence of acute f racture or alignment abnormality of the cervical spine. Vertebral body heights and disc spaces are ma intained. The atlantoaxial articulation is within normal limits. There is no prevertebral soft tissu e swelling. Soft tissues are otherwise unremarkable. No bony compromise of the spinal canal is seen. Impression: No evidence of acute fracture or alignment abnormality of the cervical spine CT DOSING PQRS STATEMENT: One or more of the following individualized dose reduction techniques were utilized for this examinat ion: 1. Automated exposure control 2. Adjustment of the mA and/or kV according to patient size 3. Use of iterative reconstruction technique Electronically signed by: Mir Sorenson MD (07/25/2021 9:04 AM) [id number]
--- NOTE | 2021-07-25 09:51 | RAD ---
XR FOOT_RIGHT 3 VIEWS Clinical Indication: Reason: fall /pain. Comparison: None. Findings: No acute fracture is identified. There is mild metatarsus primus varus and hallux valgus. There is a tripartite medial sesamoid. There is an accessory navicular. There is minimal joint space narrowing o f the first MTP. Joint spaces are otherwise maintained. There is tiny inferior calcaneal bone spur. T here is mild dorsal soft tissue swelling. IMPRESSION: No acute fracture. Electronically signed by: Tamir Becerra MD (07/25/2021 9:49 AM) [id number]
--- NOTE | 2021-07-25 09:55 | RAD ---
XR SHOULDER_RIGHT 2+ VIEWS, XR HUMERUS_RT 2 VIEWS Clinical Indication: Reason: fall, pain Comparison: None. Findings: Shoulder: There is no acute fracture or dislocation of the shoulder. The acromioclavicular and glenohumeral justin nts are intact. The visualized lung is clear. There is no evidence of a displaced rib fracture. Humerus: No acute fracture of the humerus. No obvious deformity of the elbow. Soft tissues unremarkable. IMPRESSION: No acute fracture or dislocation. Electronically signed by: Tamir Becerra MD (07/25/2021 9:52 AM) [id number]
[2021-07-25] MEDS ORDERED: OXYC-325 PO (10:06)
[2021-07-25] MEDS ORDERED: MELO15TA23 PO (10:06)
[2021-07-25] MEDS ORDERED: oxyCODONE/APAP 10/325 1 TAB TABLET ONE (10:08)
[2021-07-25] MEDS ORDERED: IBUPROFEN 800 MG TABLET. PO ONE (10:08)
[2021-07-25] MEDS ORDERED: oxyCODONE/APAP 10/325 1 TAB TABLET PO ONE (10:15)
[2021-07-25] MEDS ORDERED: IBUPROFEN 600 MG TABLET. PO ONE (10:15)
[2021-07-25 10:17] VITALS: BP 171/92
[2021-07-25] MEDS ORDERED: IBUPROFEN 800 MG TABLET. PO PRN (10:30)
== END 2021-07-25 10:28 | disposition home or self-care (01) ==
LOC: ER 08:00
DX: M79.671 Pain in right foot (principal); M25.511 Pain in right shoulder; R51.9 Headache, unspecified; R22.41 Localized swelling, mass and lump, right lower limb; E11.9 Type 2 diabetes mellitus without complications; I10 Essential (primary) hypertension; Z86.73 Personal history of transient ischemic attack (TIA), and cerebral infarction without residual deficits; Z88.1 Allergy status to other antibiotic agents; W18.39XA Other fall on same level, initial encounter; Y93.89 Activity, other specified; Y92.89 Other specified places as the place of occurrence of the external cause; Y99.8 Other external cause status
CPT/HCPCS: 70450; 72125; 73030; 73060; 73630; 96372; 99284; J2270